=== PATIENT | male | born 1940 | race Hispanic/Latino ===

== ENCOUNTER 2016-11-23 18:17 | Observation (INO) | payer MEDICARE ==
--- NOTE | 2016-11-23 18:26 | ED PDOC ---
Arrival/HPI <Mateusz Jeffers - Last Filed: 11/23/16 20:56> - General Historian: Patient <Walter Weber - Last Filed: 11/23/16 22:08> - General Time Seen by Provider: 11/23/16 18:24 - History of Present Illness Narrative History of Present Illness (Text): 11/23/16 18:25 76 y/o male, pmh including bph/htn/hyperlipidemia, FS 95, nkda, biba, last tetanus doesn't remember, biba for fall while etoh intoxication in the public. Pt. stated that he was drinking 2 shots of liquor, walking on the street, fall on the facial and sustained the abrasion, no neck or back pain, no chest or abdominal pain, no night sweat, no dizziness, no change in vision, no numbness or tingling, no other medical or psychological complaints. (Walter Weber) Past Medical History - Provider Review Nursing Documentation Reviewed: Yes - Cardiac Hx Pacemaker: No - Neurological Hx Paralysis: No - Hematological/Oncological Hx Blood Transfusions: No - Musculoskeletal/Rheumatological Hx Musculoskeletal Disorders: Yes - Gastrointestinal Hx Gastrointestinal Disorders: Yes (Spleen/Gallbladder removed-accident 15yrs ago) - Genitourinary/Gynecological Hx Genitourinary Disorders: Yes (Prostate problems) Hx Reproductive Disorders: No - Psychiatric Hx Emotional Abuse: No Hx Physical Abuse: No Hx Substance Use: No - Surgical History Hx Open Heart Surgery: Yes - Anesthesia Hx Anesthesia Reactions: No Hx Malignant Hyperthermia: No - Suicidal Assessment Feels Threatened In Home Enviroment: No <Waltre Weber - Last Filed: 11/23/16 22:08> Family/Social History - Physician Review Nursing Documentation Reviewed: Yes Family/Social History: Unknown Family HX Smoking Status: Light Smoker < 10 Cigarettes Daily Hx Alcohol Use: Yes (1/2-1PT VODKA DAILY STOPPED 01/27/15) Hx Substance Use: No Hx Substance Use Treatment: No <Walter Weber - Last Filed: 11/23/16 22:08> Allergies/Home Meds <Mateusz Jeffers - Last Filed: 11/23/16 20:56> <Walter Weber - Last Filed: 11/23/16 22:08> Allergies/Adverse Reactions: Allergies shellfish derived Allergy (Verified 11/23/16 18:29) ANAPHYLAXIS NUTS Allergy (Severe, Uncoded 02/03/15 13:49) SWELLING TONGUE SWELLS Home Medications: Home Meds Medication Instructions Recorded Confirmed Atorvastatin Calcium [Lipitor] 10 mg PO QPM 02/12/12 04/12/15 Escitalopram Oxalate 20 mg PO QPM 02/12/12 04/12/15 Ibuprofen 800 mg PO PRN PRN 02/12/12 04/12/15 Aspirin [Aspir 81] 325 mg PO DAILY 05/29/12 03/03/15 Cyclobenzaprine [Flexeril] 5 mg PO Q8 PRN 02/03/15 04/12/15 Lisinopril/Hydrochlorothiazide 1 tab PO QAM 02/03/15 04/12/15 [Lisinopril-Hydrochlorothiazide 12.5 mg-10 mg] Silodosin [Rapaflo] 8 mg PO QAM 02/03/15 04/12/15 Amoxicillin [Amoxicillin] 500 mg PO BID 04/12/15 04/12/15 Review of Systems - Review of Systems Systems not reviewed;Unavailable: Intoxicated Constitutional: absent: Fatigue, Fevers Eyes: absent: Vision Changes ENT: absent: Hearing Changes, Rhinorrhea Cardiovascular: absent: Chest Pain Gastrointestinal: absent: Abdominal Pain, Diarrhea, Nausea, Vomiting Musculoskeletal: absent: Arthralgias, Back Pain, Neck Pain, Joint Swelling, Myalgias Skin: Other (abrasion). absent: Rash, Pruritis Neurological: absent: Headache, Dizziness, Focal Weakness, Gait Changes, Speech Changes, Facial Droop, Disequilibrium, Seizure Endocrine: absent: Diaphoresis Hemo/Lymphatic: absent: Adenopathy Psychiatric: absent: Anxiety <Walter Weber Q - Last Filed: 11/23/16 22:08> Physical Exam Vital Signs Reviewed: Yes - Systems Exam Head: Present: Atraumatic, Normocephalic Pupils: Present: PERRL Extroacular Muscles: Present: EOMI Conjunctiva: Present: Normal Ears: Present: NORMAL TM, Normal Canal. No: Erythema, TM Bulging, Fluid, TM Perf Mouth: Present: Moist Mucous Membranes Nose (External): Present: Atraumatic, Abrasion (noted superficial abrasion [id number] superficial abrasion to the rt. lower nostril region. ). No: Contusion , Laceration, Lesions Nose (Internal): Present: Normal Inspection, No Active Bleeding. No: Rhinorrhea , Purulent Mucous, Septal Deviation, Septal Hematoma, Epistaxis Neck: Present: Normal Range of Motion, Trachea Midline. No: MIDLINE TENDERNESS , Paraspinal Tenderness, Lymphadenopathy Respiratory/Chest: Present: Clear to Auscultation, Good Air Exchange. No: Respiratory Distress, Accessory Muscle Use Cardiovascular: Present: Regular Rate and Rhythm, Normal S1, S2. No: Murmurs Abdomen: Present: Normal Bowel Sounds. No: Tenderness, Distention, Peritoneal Signs, Rebound, Guarding Back: Present: Normal Inspection. No: CVA Tenderness, Midline Tenderness, Paraspinal Tenderness Upper Extremity: Present: Normal Inspection. No: Cyanosis, Edema Lower Extremity: Present: Normal Inspection. No: Edema Neurological: Present: GCS=15, Speech Normal, Motor Func Grossly Intact, Gait Normal, Memory Normal Skin: Present: Warm, Dry, Normal Color. No: Rashes Psychiatric: Present: Alert, Oriented x 3, Normal Insight, Normal Concentration <Walter Weber - Last Filed: 11/23/16 22:08> Vital Signs Temp Pulse Resp BP Pulse Ox 11/23/16 19:03 97.9 F 77 20 129/73 97 Medical Decision Making <Mateusz Jeffers - Last Filed: 11/23/16 20:56> - RAD Interpretation Fleet Manager/Dispatch: Radiologist <Walter Weber - Last Filed: 11/23/16 22:08> ED Course and Treatment: 11/23/16 18:53 -CT head/facial -tetanus -wound irrigate, clean, bacitracin and gauze dressing -observe and reassess 11/23/16 21:13 -CT head and facial show no acute traumatic findings, discussed the results with the patient, advised outpatient neurologist and pmd follow up for further evaluation. -Pt. just gave us the phone number for the daughter which she is from [place], [place]. [employer] Dangelo calling the daughter. 11/23/16 21:24 -We were able to get in touch with the daughter, she will come to [place] the father. 11/23/16 22:05 -Daughter's parents in laws are here and will take the patient home. -Discharge home with education on follow up with your own pmd within 2 days, avoid drinking alcohol in the public as this is dangerous behavior, use bacitracin or neosporin twice daily after cleaning with soap and water, follow up with your own pmd and neurologist within 2 days, return to the ER for any new or worsening signs or symptoms. 11/23/16 22:08 -Pt. is walking around in the ER with normal gait and posture. (Walter Weber Vu) - RAD Interpretation Radiology Orders: 11/23/16 18:37 HEAD W/O CONTRAST [CT] Stat MAXILLOFACIAL W/O CONTRAST [CT] Stat CT Head: FINDINGS: Brain: Moderate atrophy. No intracranial hemorrhage. No mass. Several scattered foci of decreased attenuation within periventricular/subcortical white matter. No edema. Ventricles: No hydrocephalus. Bones/joints: No calvarial fracture. Soft tissues: Unremarkable. Vasculature: Atherosclerotic disease of intracranial arteries. Mastoid air cells: No mastoid effusion. IMPRESSION: 1. No intracranial hemorrhage. 2. Nonspecific white matter changes. 3. See facial bone CT report for additional details. 4. Incidental/non-acute findings are described above. Dictated and Authenticated by: Ryan Diaz MD 11/23/2016 9:02 PM Eastern Time ([place] & [place]) CT Maxillofacial: FINDINGS: Bones/joints: Degenerative changes of cervical spine. Degenerative changes of RIGHT temporomandibular joint. No acute fracture. Soft tissues: Unremarkable. Orbits: Unremarkable as visualized. Sinuses: Scattered mild mucosal thickening. No air-fluid levels. Dental: Dental caries. IMPRESSION: 1. No fracture. 2. Incidental/non-acute findings are described above. Thank you for allowing us to participate in the care of your patient. Dictated and Authenticated by: Ryan Diaz MD 11/23/2016 9:07 PM Eastern Time ([place] & [place]) (Walter Weber) - Medication Orders Current Medication Orders: Discontinued Medications Tetanus/Reduced Diphtheria/Acell Pertussis (Boostrix Vaccine Inj) 0.5 ml IM .ONCE ONE Stop: 11/23/16 18:38 Last Admin: 11/23/16 19:36 Dose: 0.5 ML MAR Immunization Data Document 11/23/16 19:36 OCS (Rec: 11/23/16 19:37 OCS [id number]) Immunization Data Vaccine Lot Number [id number] Vaccine Expiration Date 11/29/18 Site Given Right Deltoid Route Intramuscular Immunization Units ml ED OBSERVATION <Mateusz Jeffers - Last Filed: 11/23/16 20:56> Discharge: Yes Date of observation admission: 11/23/16 Time of observation admission: 18:56 <Walter Weber - Last Filed: 11/23/16 22:08> - Observation admission statement Patient is being placed in observation because:: alcohol intoxication (Walter Weber) - Goals of Observation Goals of observation are:: sober (Walter Weber) - Progress Note Progress Note: 11/23/16 22:06 -Discharge home with education on follow up with your own pmd within 2 days, avoid drinking alcohol in the public as this is dangerous behavior, use bacitracin or neosporin twice daily after cleaning with soap and water, follow up with your own pmd and neurologist within 2 days, return to the ER for any new or worsening signs or symptoms. (Walter Weber) - PA / CERAMIC RESTORER / Resident Statement LULA has reviewed & agrees with the documentation as recorded. <Mateusz Jeffers - Last Filed: 11/23/16 20:56> - PA / CERAMIC RESTORER / Resident Statement LULA has reviewed & agrees with the documentation as recorded. <Walter Weber - Last Filed: 11/23/16 22:08> Disposition/Present on Arrival <Mateusz Jeffers - Last Filed: 11/23/16 20:56> - Present on Arrival Any Indicators Present on Arrival: No History of DVT/PE: No History of Uncontrolled Diabetes: No Urinary Catheter: No History of Decub. Ulcer: No History Surgical Site Infection Following: None - Disposition Have Diagnosis and Disposition been Completed?: Yes Disposition Time: 21:25 Patient Plan: Discharge <Walter Weber - Last Filed: 11/23/16 22:08> - Disposition Diagnosis: Abrasion, Alcohol intoxication, Fall Disposition: HOME/ ROUTINE Patient Problems: Current Active Problems Problem Status Diagnosed Abrasion Acute Alcohol intoxication Acute Fall Acute Condition: GOOD
[2016-11-23 18:28] VITALS: BMI 25.1
[2016-11-23] MEDS ORDERED: TDAP Vaccine 0.5 mL Syr IM ONE (18:37)
[2016-11-23 19:04] VITALS: BP 129/73; PULSE 77; RESP 20; TEMP 97.9; O2SAT 97
--- NOTE | 2016-11-23 21:02 | CT ---
EXAM: CT Head Without Intravenous Contrast. CLINICAL HISTORY: 76 years old, male; Injury or trauma; Fall; Initial encounter; Abrasion; Head, generalized; Additional info: Fall, ETOH, TECHNIQUE: Axial computed tomography images of the head/brain without intravenous contrast. This CT exam was performed using one or more of the following dose reduction techniques: automated exposure control, adjustment of the mA and/or kV according to patient size, and/or use of iterative reconstruction technique. COMPARISON: No relevant prior studies available. FINDINGS: Brain: Moderate atrophy. No intracranial hemorrhage. No mass. Several scattered foci of decreased attenuation within periventricular/subcortical white matter. No edema. Ventricles: No hydrocephalus. Bones/joints: No calvarial fracture. Soft tissues: Unremarkable. Vasculature: Atherosclerotic disease of intracranial arteries. Mastoid air cells: No mastoid effusion. IMPRESSION: 1. No intracranial hemorrhage. 2. Nonspecific white matter changes. 3. See facial bone CT report for additional details. 4. Incidental/non-acute findings are described above.
--- NOTE | 2016-11-23 21:07 | CT ---
EXAM: CT Maxillofacial Without Intravenous Contrast. CLINICAL HISTORY: 76 years old, male; Injury or trauma; Fall; Initial encounter; Abrasion; Forehead; Additional info: Fall, ETOH TECHNIQUE: Axial computed tomography images of the face without intravenous contrast. This CT exam was performed using one or more of the following dose reduction techniques: automated exposure control, adjustment of the mA and/or kV according to patient size, and/or use of iterative reconstruction technique. Coronal and sagittal reformatted images were created and reviewed. COMPARISON: No relevant prior studies available. FINDINGS: Bones/joints: Degenerative changes of cervical spine. Degenerative changes of RIGHT temporomandibular joint. No acute fracture. Soft tissues: Unremarkable. Orbits: Unremarkable as visualized. Sinuses: Scattered mild mucosal thickening. No air-fluid levels. Dental: Dental caries. IMPRESSION: 1. No fracture. 2. Incidental/non-acute findings are described above.
== END 2016-11-23 22:06 | disposition home or self-care (01) ==
LOC: ED 18:17 → EROBSV 18:55
PROVIDERS: ADMIT Emergency Medicine; ATTEND Emergency Medicine
DX: F10.129 Alcohol abuse with intoxication, unspecified (principal); S00.81XA Abrasion of other part of head, initial encounter; W19.XXXA Unspecified fall, initial encounter; Y93.01 Activity, walking, marching and hiking; Y92.410 Unspecified street and highway as the place of occurrence of the external cause; Z23 Encounter for immunization
CPT/HCPCS: 70450; 70486; 82948; 90471; 90715; 99284; G0378

== ENCOUNTER 2017-11-27 14:53 | Inpatient (IN) | payer MEDICARE ==
--- NOTE | 2017-11-27 15:10 | ED PDOC ---
Arrival/HPI - General Chief Complaint: Chest Pain Time Seen by Provider: 11/27/17 15:06 Historian: Patient - History of Present Illness Narrative History of Present Illness (Text): 11/27/17 15:10 pt p/w + ~ 1 day onset of mid/epigastric/substernal chest pain, at times radiating to left chest wall; pt states pain is tolerable/moderately painful; pt states + sob, no fever/chills/sweats, no palpitations, no abd pain, no n/v, no numbness/tingling; pt states no LOC; pt arrived to ED for further eval; pt's without other complaints per pt's daughter, pt states ~ 1 week onset of chest pain PCP: Yen CARDS: Rajan + 2 stents prior to triple vessel bypass + smoker + lives alone last cardiac evaluation as 2013 + mild dementia (noted by daughter) Time/Duration: 24 hours Symptom Onset: Sudden Symptom Course: Intermittent Quality: Tightness Activities at Onset: Rest Context: Home Past Medical History - Provider Review Nursing Documentation Reviewed: Yes - Travel History Have you recently traveled outside [place] w/in the past 3 mons?: No - Past History Past History: No Previous - Infectious Disease Hx of Infectious Diseases: None - Cardiac Hx NM: Yes Hx Hypertension: Yes - Neurological Hx Paralysis: No - HEENT Hx HEENT Disorder: No - Renal Hx Renal Disorder: No - Endocrine/Metabolic Hx Endocrine Disorders: No - Hematological/Oncological Hx Blood Disorders: No - Musculoskeletal/Rheumatological Hx Musculoskeletal Disorders: Yes - Gastrointestinal Hx Gastrointestinal Disorders: Yes (Spleen/Gallbladder removed-accident 15yrs ago) - Genitourinary/Gynecological Hx Genitourinary Disorders: Yes (Prostate problems) Hx Prostate Problems: Yes - Psychiatric Hx Psychophysiologic Disorder: No Hx Substance Use: No - Surgical History Hx Coronary Artery Bypass Graft: Yes Hx Open Heart Surgery: Yes - Anesthesia Hx Anesthesia Reactions: No Hx Malignant Hyperthermia: No - Suicidal Assessment Feels Threatened In Home Enviroment: No Family/Social History - Physician Review Nursing Documentation Reviewed: Yes Family/Social History: No Known Family HX Smoking Status: Light Smoker < 10 Cigarettes Daily Hx Alcohol Use: Yes (1/2-1PT VODKA DAILY STOPPED 01/27/15) Hx Substance Use: No Hx Substance Use Treatment: No Allergies/Home Meds Allergies/Adverse Reactions: Allergies shellfish derived Allergy (Verified 11/27/17 15:06) ANAPHYLAXIS NUTS Allergy (Severe, Uncoded 11/27/17 15:06) SWELLING TONGUE SWELLS Home Medications: Home Meds Medication Instructions Recorded Confirmed Aspirin [Adult Low Dose Aspirin EC] 81 mg PO DAILY 11/27/17 11/27/17 Bupropion HCl [Bupropion HCl Xl] 150 mg PO DAILY 11/27/17 11/27/17 Escitalopram [Lexapro] 20 mg PO DAILY 11/27/17 11/27/17 Lisinopril/Hydrochlorothiazide 1 tab PO DAILY 11/27/17 11/27/17 [Lisinopril-Hctz 10-12.5 mg Tab] Tamsulosin [Flomax] 0.8 mg PO DAILY 11/27/17 11/27/17 Review of Systems - Review of Systems Constitutional: Normal Eyes: Normal ENT: Normal Respiratory: SOB Cardiovascular: Chest Pain Gastrointestinal: Normal Genitourinary Male: Normal Musculoskeletal: Normal Skin: Normal Neurological: Normal Endocrine: Normal Hemo/Lymphatic: Normal Psychiatric: Normal Physical Exam Vital Signs Reviewed: Yes Vital Signs Temp Pulse Resp BP Pulse Ox 11/27/17 15:04 97.4 F L 64 18 128/61 93 L Temperature: Afebrile Blood Pressure: Normal Pulse: Regular Respiratory Rate: Normal Appearance: Positive for: Well-Appearing, Non-Toxic, Uncomfortable, Other ( resting in bed, alert/awake, GCS = 15, oriented x 3, NAD, mildly uncomfortable) Pain Distress: None Mental Status: Positive for: Alert and Oriented X 3 - Systems Exam Head: Present: Atraumatic, Normocephalic Pupils: Present: PERRL, Other (no nystagmus, no photophobia, visual field intact b/l) Extroacular Muscles: Present: EOMI Conjunctiva: Present: Normal Ears: Present: Normal Mouth: Present: Moist Mucous Membranes, Other (fair dentitions, no drooling/ stridor/exudate; no dysphonia) Pharnyx: Present: Normal Nose (External): Present: Atraumatic Nose (Internal): Present: Normal Inspection Neck: Present: Normal Range of Motion, Trachea Midline, Other (no step off, no meningeal signs, no nuchal rigidity). No: MIDLINE TENDERNESS, JVD Respiratory/Chest: Present: Clear to Auscultation, Good Air Exchange, Other ( basiliar coarse breath sounds noted, no tachypenia, no w/r/r, no accessory muscle use noted) Cardiovascular: Present: Regular Rate and Rhythm, Normal S1, S2. No: Murmurs, Tachycardic Abdomen: Present: Normal Bowel Sounds, Other (well nourished male, no focal tenderness, no navarrete's sign, no mcburney's point tenderness, no masses/rebound/ guarding/rigidity) Back: Present: Normal Inspection. No: CVA Tenderness, Midline Tenderness Upper Extremity: Present: Normal Inspection, Normal ROM, NORMAL PULSES, Neurovascularly Intact, Capillary Refill < 2s Lower Extremity: Present: Normal Inspection, NORMAL PULSES, Normal ROM, Neurovascularly Intact, Capillary Refill < 2 s Neurological: Present: GCS=15, CN II-XII Intact, Speech Normal Skin: Present: Warm, Normal Color, Other (cap refill<1s, no ulcerations, no petechiae, no rashes/pallor). No: Rashes Psychiatric: Present: Alert Medical Decision Making ED Course and Treatment: 11/27/17 15:23 Impression: chest pain i have consider all the differential diagnosis regarding pt's chief medical complaints/clinical findings, including but are not limited to: r/o ACS A/P: r/o ACS - labs - iv - xray - acs eval - observe - supportive care I spoke to pt's daughter, Mrs Diaz, who states pt with intermittent chest pain x ~ 1 week; pt with sob/not feeling well; pt lives alone 11/27/17 16:15 pt is currently comfortable pt is not in any distress/pain vital signs WNL pt is made aware of his medical results agrees with admission/observation I spoke to PCP/medicine disease intervention specialist, Dr Dempsey, made aware of pt's medical results, agrees with admission/observation Re-evaluation Time: 16:22 Reassessment Condition: Improved - Lab Interpretations Lab Results: 11/27/17 15:15 11/27/17 15:15 Lab Results 11/27/17 15:15: Sodium 143, Potassium 4.3, Chloride 108 H, Carbon Dioxide 27, Anion Gap 12, BUN 33 H, Creatinine 1.3, Est GFR ( Amer) > 60, Est GFR ( Non-Af Amer) 54, Random Glucose 99, Calcium 9.6, Magnesium 2.3 H, Total Bilirubin 0.6, AST 31, ALT 31, Alkaline Phosphatase 87, Lactate Dehydrogenase 457, Total Creatine Kinase 152, Troponin I < 0.01, NT-Pro-B Natriuret Pep 231, Total Protein 7.2, Albumin 3.9, Globulin 3.3, Albumin/Globulin Ratio 1.2 11/27/17 15:15: PT 11.7, INR 1.03, APTT 28.5 11/27/17 15:15: WBC 7.3, RBC 4.34, Hgb 13.7 L, Hct 39.5 L, MCV 91.0, MCH 31.6, MCHC 34.7, RDW 14.3, Plt Count 173, MPV 12.3 H, Gran % 51.5, Lymph % (Auto) 35.7 H, [place] % (Auto) 9.2 H, Eos % (Auto) 3.1, Baso % (Auto) 0.5, Gran # 3.77, Lymph # (Auto) 2.6, [place] # (Auto) 0.7 H, Eos # (Auto) 0.2, Baso # (Auto) 0.04 I have reviewed the lab results: Yes Interpretation: All labs normal - RAD Interpretation Narrative RAD Interpretations (Text): 11/27/17 16:22 CXR - rotated, poor insp effort, + sternotomy, mild cardiomeagly Radiology Orders: 11/27/17 15:11 CHEST TWO VIEWS (PA/LAT) [RAD] Stat Nurse Companion: ED Physician - EKG Interpretation EKG Interpretation (Text): 11/27/17 15:21 NSR at 65 BPM, normal axis, no ectopy, inverted T in leads II/III, V4-6, no st changes, ABNL EKG; unchanged compare with old ekg 01/2015 Interpreted by ED Physician: Yes Type: 12 lead EKG Comparison: Similar to previous EKG - Medication Orders Current Medication Orders: Discontinued Medications Acetaminophen (Tylenol 325mg Tab) 650 mg PO STAT STA Stop: 11/27/17 15:13 Last Admin: 11/27/17 15:24 Dose: 650 mg MAR Pain/Vitals Document 11/27/17 15:24 [facility] (Rec: 11/27/17 15:24 [facility] [id number]) Pain Reassessment Is This A Pain ReAssessment? No Sleep Is patient sleeping during reassessment? No Presence of Pain Presence of Pain Yes Pain Scale Used Pain Scale Used Numeric Location Left, Right or Bilateral Left Pain Location Body Site Chest Intensity 4 Scale Used Numeric Aspirin (Aspirin) 325 mg PO STAT STA Stop: 11/27/17 15:12 Last Admin: 11/27/17 15:24 Dose: 325 mg Nitroglycerin (Nitro-Bid 2% Oint) 1 ea TOP STAT STA Stop: 11/27/17 15:13 Last Admin: 11/27/17 15:24 Dose: 1 ea Disposition/Present on Arrival - Present on Arrival Any Indicators Present on Arrival: No History of DVT/PE: No History of Uncontrolled Diabetes: No Urinary Catheter: No History of Decub. Ulcer: No History Surgical Site Infection Following: None - Disposition Have Diagnosis and Disposition been Completed?: Yes Diagnosis: Chest pain with moderate risk of acute coronary syndrome Disposition: HOSPITALIZED Disposition Time: 15:30 Patient Plan: Admission, Observation Patient Problems: Current Active Problems Problem Status Onset Chest pain with moderate risk of acute coronary syndrome Acute Condition: STABLE Discharge Instructions (ExitCare): Chest Pain (ED) Referrals: Clive Fox MD [Primary Care Provider] - Follow up with primary Forms: [facility] (Russian)
[2017-11-27] MEDS ORDERED: Nitroglycerin 2% Ointment Foilpak UD TOP STA (15:12)
[2017-11-27 15:29] LABS: BASO # 0.04 K/mm3 (0.0-2.0); BASO % 0.5 % (0.0-3.0); EOS # 0.2 (0.0-0.7); EOS % 3.1 % (1.5-5.0); GRAN # 3.77 (1.4-6.5); GRAN % 51.5 % (50.0-68.0); HEMOGLOBIN 13.7 g/dL (14.0-18.0); LYMPH # 2.6 (1.2-3.4); LYMPH % 35.7 % (22.0-35.0); MEAN CORPUSCULAR HEMOGLOBIN 31.6 pg (25.0-35.0); MEAN CORPUSCULAR HGB CONC 34.7 g/dl (31.0-37.0); MEAN PLATELET VOLUME 12.3 fl (7.0-11.0); MONO # 0.7 (0.1-0.6); MONO % 9.2 % (1.0-6.0); RBC 4.34 10^6/uL (3.5-6.1); RED CELL DISTRIBUTION WIDTH 14.3 % (11.5-14.5); WHITE BLOOD COUNT 7.3 10^3/ul (4.5-11.0)
[2017-11-27 15:39] LABS: ALB/GLOB RATIO 1.2 (1.1-1.8); ALBUMIN 3.9 g/dL (3.0-4.8); ALT/SGPT 31 U/L (7-56); AST/SGOT 31 U/L (17-59); BLOOD UREA NITROGEN 33 mg/dL (7-21); CALCIUM 9.6 mg/dL (8.4-10.5); GFR AFRICAN-AMERICAN > 60; GFR NON-AFRICAN AMERICAN 54
[2017-11-27 15:41] LABS: INR 1.03 (0.93-1.08); PARTIAL THROMBOPLASTIN TIME 28.5 Seconds (25.1-36.5); PROTHROMBIN TIME 11.7 SECONDS (9.4-12.5)
[2017-11-27 15:51] LABS: B-TYPE NATRIURETIC PEPTIDE 231 pg/mL (0-450); TROPONIN I < 0.01 ng/mL
--- NOTE | 2017-11-27 16:51 | RAD ---
HISTORY: chest pain COMPARISON: 02/03/2015 TECHNIQUE: Chest PA and lateral FINDINGS: LUNGS: Hyperinflation, manifestations of COPD. No active pulmonary disease. PLEURA: No significant pleural effusion identified. No pneumothorax apparent. CARDIOVASCULAR: No radiographic findings to suggest acute or significant cardiovascular disease. Incidental Finding(s): Postoperative changes related to sternotomy. OSSEOUS STRUCTURES: Severe degenerative changes both shoulders right greater than left. VISUALIZED UPPER ABDOMEN: Normal. OTHER FINDINGS: None. IMPRESSION: No active disease. No significant interval change compared to the prior examination(s).
[2017-11-27 16:58] LABS: HDL CHOLESTEROL 30 mg/dL (29-60)
[2017-11-27 17:08] LABS: LDL CHOLESTEROL 128 mg/dL (0-129)
--- NOTE | 2017-11-27 17:13 | CARD ---
APPROVED REPORT EKG Measurement Heart [id number] <Conclusion> Normal sinus rhythm Incomplete right bundle branch block T wave abnormality, consider lateral ischemia
[2017-11-27 17:52] LABS: URINE BILIRUBIN NEGATIVE (NEGATIVE); URINE BLOOD NEGATIVE (NEGATIVE); URINE GLUCOSE (UA) NEGATIVE (NEGATIVE); URINE LEUKOCYTE ESTERASE NEGATIVE Leu/uL (NEGATIVE); URINE PROTEIN NEGATIVE mg/dL (<30 mg/dL); URINE UROBILINOGEN 0.2 E.U./dL (<1 E.U./dL)
[2017-11-27] MEDS ORDERED: Albuterol-Ipratrop 3 mg / 0.5 (3 ml) UD IH PRN (17:57)
[2017-11-27 18:02] LABS: URINE APPEARANCE CLEAR (CLEAR); URINE COLOR YELLOW (YELLOW)
[2017-11-27 18:17] LABS: BARBITURATES, UR NEGATIVE (NEGATIVE); BENZODIAZEPINES, UR NEGATIVE (NEGATIVE); OPIATES, UR NEGATIVE (NEGATIVE); PHENCYCLIDINE, UR NEGATIVE (NEGATIVE)
--- NOTE | 2017-11-27 18:29 | CP.PCM.HP ---
<BurrowsGavin - Last Filed: 11/27/17 17:59> History of Present Illness - History of Present Illness History of Present Illness: Mr. Ceron is a 77 year old male with a past medical history of CAD s/p CABG and three MARIAH(~2011), HTN, BPH, COPD, depression, dementia, alcohol use disorder and tobacco use disorder who presents with one week of intermittent non -radiating sharp/stabbing substernal chest pain. Patient has a history of dementia and speaks primarily Pakistani so a souvenir and novelty maker was used for HPI interview with supplementation via phone from patients daughter. Patient has been having episodes of intermittent non-radiating sharp/stabbing substernal chest pain while at rest lasting less than one minute. These episodes are self limited and require no intervention for resolution. He has been having these episodes over the course of the past week with no correlation to exertion, positional changes or PO intake. He denies ever having pain like this in the past. Patient denies recent travel, sick contacts, fevers, chills, headache, changes in his vision, palpitations, syncope, vertigo, SOB, cough, sputum production, hemoptysis, abdominal pain, dyspepsia, N/V/D/C, changes in his urine output/color, skin changes, easy bruising/bleeding, or any numbness/tingling/weakness of any extremity. In the ED, patient was found to have one negative troponin and an EKG showing T- wave inversions which were noted to be unchanged from prior EKG's. He was given Tylenol 650mg, ASA 325mg and a topical Nitroglycerin patch. PMH: CAD s/p CABG and three MARIAH(~2011), HTN, BPH, COPD, depression, dementia, alcohol use disorder and tobacco use disorder PSH: CABG (~2011), Splenectomy, and Cholecystectomy Family History: Denies Social History: Current smoker with 30+ year pack smoking history and denies alcohol or illicit drug use; Speaks primarily Pakistani; Lives alone in [place] and completes all of his ADL's without assistance Allergies: Shellfish and Nuts Home Medications: As per NOV PMD: Dr. Fox Activities Concierge: Dr. Rajan Present on Admission - Present on Admission Any Indicators Present on Admission: No Review of Systems - Review of Systems Review of Systems: As per HPI, otherwise negative Past Patient History - Infectious Disease Hx of Infectious Diseases: None - Tetanus Immunizations Tetanus Immunization: Unknown - Past Social History Smoking Status: Light Smoker < 10 Cigarettes Daily - CARDIAC Hx Heart Attack: Yes Hx Hypertension: Yes - NEUROLOGICAL Hx Paralysis: No - HEENT Hx HEENT Problems: No - RENAL Hx Chronic Kidney Disease: No - ENDOCRINE/METABOLIC Hx Endocrine Disorders: No - HEMATOLOGICAL/ONCOLOGICAL Hx Blood Disorders: No - MUSCULOSKELETAL/RHEUMATOLOGICAL Hx Musculoskeletal Disorders: Yes - GASTROINTESTINAL Hx Gastrointestinal Disorders: Yes (Spleen/Gallbladder removed-accident 15yrs ago) - GENITOURINARY/GYNECOLOGICAL Hx Genitourinary Disorders: Yes (Prostate problems) Hx Prostate Problems: Yes - PSYCHIATRIC Hx Psychophysiologic Disorder: No Hx Substance Use: No - SURGICAL HISTORY Hx Coronary Artery Bypass Graft: Yes Hx Open Heart Surgery: Yes - ANESTHESIA Hx Anesthesia Reactions: No Hx Malignant Hyperthermia: No Meds Allergies/Adverse Reactions: Allergies Allergy/AdvReac Type Severity Reaction Status Date / Time shellfish derived Allergy ANAPHYLAXIS Verified 11/27/17 15:06 NUTS Allergy Severe SWELLING Uncoded 11/27/17 15:06 Physical Exam - Constitutional Appears: Non-toxic, No Acute Distress - Head Exam Head Exam: ATRAUMATIC, NORMOCEPHALIC - Eye Exam Eye Exam: EOMI, Normal appearance Pupil Exam: NORMAL ACCOMODATION, PERRL - ENT Exam ENT Exam: Mucous Membranes Moist, Normal Exam - Neck Exam Neck exam: Positive for: Full Rom, Normal Inspection. Negative for: Lymphadenopathy, Tenderness - Respiratory Exam Respiratory Exam: Clear to Auscultation Bilateral, NORMAL BREATHING PATTERN. absent: Accessory Muscle Use, Chest Wall Tenderness, Decreased Breath Sounds, Prolonged Expiratory Phase, Rales, Rhonchi, Wheezes, Respiratory Distress, Stridor - Cardiovascular Exam Cardiovascular Exam: REGULAR RHYTHM, RRR, +S1, +S2. absent: Bradycardia, Tachycardia, Clicks, Diastolic murmur, Gallop, Irregular Rhythm, JVD, Rubs, +S4 , Systolic Murmur - GI/Abdominal Exam GI & Abdominal Exam: Normal Bowel Sounds, Soft. absent: Distended, Firm, Guarding, Rebound, Tenderness - Extremities Exam Extremities exam: Positive for: full ROM, normal capillary refill, normal inspection, pedal pulses present. Negative for: calf tenderness, joint swelling , pedal edema, tenderness - Back Exam Back exam: NORMAL INSPECTION - Neurological Exam Neurological exam: Alert, CN II-XII Intact, Oriented x3 - Psychiatric Exam Psychiatric exam: Normal Affect, Normal Mood - Skin Skin Exam: Dry, Intact, Normal Color, Warm Results - Vital Signs Recent Vital Signs: Last Vital Signs Temp 97.4 F L 11/27/17 15:04 Pulse 64 11/27/17 15:04 Resp 18 11/27/17 15:04 BP 128/61 11/27/17 15:04 Pulse Ox 93 L 11/27/17 15:04 - Labs Result Diagrams: 11/27/17 15:15 11/27/17 15:15 - EKG Data EKG shows normal: Sinus rhythm Rate: Normal - EKG Data When Compared to Previous EKG: No Significant Change Assessment & Plan - Assessment and Plan (Free Text) Assessment: 77 year old male with a past medical history of CAD s/p CABG and three MARIAH(~2011 ), HTN, BPH, COPD, depression, dementia, alcohol use disorder and tobacco use disorder who presents with one week of intermittent non-radiating sharp/ stabbing substernal chest pain. In the ED, patient was found to have one negative troponin and an EKG showing T-wave inversions which were noted to be unchanged from prior EKG's. He was given Tylenol 650mg, ASA 325mg and a topical Nitroglycerin patch. Cardiology was consulted and patient was admitted to telemetry. Plan: 1. Chest Pain -EMPERATRIZ Score: 5 -Chest X-Ray showed hyperinflation consistent with COPD but with no active pulmonary disease -EKG showed NSR at 64 beats/min, incomplete RBBB and T-wave inversions in multiple leads which is noted to be unchanged from prior EKG's -Initial troponin negative with two serial troponins pending -Pro-BNP within normal limits -Echo, Lipid Panel and A1c pending -Given Tylenol 650mg, ASA 325mg and a topical Nitroglycerin patch in ED -Telemetry monitoring -Cardiology consulted, all recommendations appreciated 2. History of HTN -Lisinopril 10mg PO daily 3. History of CAD s/p CABG and three MARIAH -See EKG findings above -Continue home ASA -Started Toprol XL 12.5mg PO daily 4. History of Alcohol Abuse/Withdrawal -Alcohol serum pending -Ativan 1mg IVP Q6H PRN for symptoms of alcohol withdrawal -PO Folate, Thiamine and MV supplementation -CIWA Assessments Q4H -Fall, Aspiration and Seizure precautions -Cessation recommendations provided 5. History of BPH -Continue home Flomax 6. History of COPD -See chest x-ray findings above -Duonebs Q2H PRN 7. History of Depression/Anxiety -Continue home Wellbutrin and Lexapro 8. History of Tobacco Use Disorder -Nicoderm CQ TD QD -Cessation recommendations provided GI Prophylaxis: Pepcid DVT Prophylaxis: Heparin Patient seen and case discussed with attending, Dr. Dempsey. - Date & Time Date: 11/27/17 Time: 18:31 <Sandra Dempsey - Last Filed: 11/28/17 13:52> Results - Vital Signs Recent Vital Signs: Last Vital Signs Temp 98 F 11/28/17 12:00 Pulse 77 11/28/17 13:30 Resp 18 11/28/17 13:30 BP 138/73 11/28/17 13:30 Pulse Ox 93 L 11/28/17 06:00 - Labs Result Diagrams: 11/28/17 04:10 11/28/17 04:10 Labs: Laboratory Results - last 24 hr 11/27/17 11/27/17 11/27/17 17:38 17:38 18:15 WBC RBC Hgb Hct MCV MCH MCHC RDW Plt Count MPV Gran % Lymph % (Auto) [place] % (Auto) Eos % (Auto) Baso % (Auto) Gran # Lymph # (Auto) [place] # (Auto) Eos # (Auto) Baso # (Auto) APTT Sodium Potassium Chloride Carbon Dioxide Anion Gap BUN Creatinine Est GFR ( Amer) Est GFR (Non-Af Amer) Random Glucose Calcium Total Bilirubin AST ALT Alkaline Phosphatase Troponin I Total Protein Albumin Globulin Albumin/Globulin Ratio Urine Color Yellow Urine Appearance Clear Urine pH 6.0 Ur Specific [place] 1.025 Urine Protein Negative Urine Glucose (UA) Negative Urine Ketones Negative Urine Blood Negative Urine Nitrate Negative Urine Bilirubin Negative Urine Urobilinogen 0.2 Ur Leukocyte Esterase Negative Urine Opiates Screen Negative Urine Methadone Screen Negative Ur Barbiturates Screen Negative Ur Phencyclidine Scrn Negative Ur Amphetamines Screen Negative U Benzodiazepines Scrn Negative U Oth Cocaine Metabols Negative U Cannabinoids Screen Negative Alcohol, Quantitative < 10 11/28/17 11/28/17 11/28/17 04:10 04:10 04:10 WBC 7.1 RBC 4.15 Hgb 12.7 L Hct 37.6 L MCV 90.6 MCH 30.6 MCHC 33.8 RDW 14.4 Plt Count 159 MPV 12.4 H Gran % 45.1 L Lymph % (Auto) 40.8 H [place] % (Auto) 8.6 H Eos % (Auto) 4.8 Baso % (Auto) 0.7 Gran # 3.18 Lymph # (Auto) 2.9 [place] # (Auto) 0.6 Eos # (Auto) 0.3 Baso # (Auto) 0.05 APTT 30.6 Sodium 142 Potassium 4.0 Chloride 107 Carbon Dioxide 26 Anion Gap 13 BUN 28 H Creatinine 1.1 Est GFR ( Amer) > 60 Est GFR (Non-Af Amer) > 60 Random Glucose 99 Calcium 9.3 Total Bilirubin 0.6 AST 28 ALT 41 Alkaline Phosphatase 69 Troponin I < 0.01 Total Protein 6.6 Albumin 3.6 Globulin 3.0 Albumin/Globulin Ratio 1.2 Urine Color Urine Appearance Urine pH Ur Specific [place] Urine Protein Urine Glucose (UA) Urine Ketones Urine Blood Urine Nitrate Urine Bilirubin Urine Urobilinogen Ur Leukocyte Esterase Urine Opiates Screen Urine Methadone Screen Ur Barbiturates Screen Ur Phencyclidine Scrn Ur Amphetamines Screen U Benzodiazepines Scrn U Oth Cocaine Metabols U Cannabinoids Screen Alcohol, Quantitative 11/28/17 11:15 WBC RBC Hgb Hct MCV MCH MCHC RDW Plt Count MPV Gran % Lymph % (Auto) [place] % (Auto) Eos % (Auto) Baso % (Auto) Gran # Lymph # (Auto) [place] # (Auto) Eos # (Auto) Baso # (Auto) APTT Sodium Potassium Chloride Carbon Dioxide Anion Gap BUN Creatinine Est GFR ( Amer) Est GFR (Non-Af Amer) Random Glucose Calcium Total Bilirubin AST ALT Alkaline Phosphatase Troponin I < 0.01 Total Protein Albumin Globulin Albumin/Globulin Ratio Urine Color Urine Appearance Urine pH Ur Specific [place] Urine Protein Urine Glucose (UA) Urine Ketones Urine Blood Urine Nitrate Urine Bilirubin Urine Urobilinogen Ur Leukocyte Esterase Urine Opiates Screen Urine Methadone Screen Ur Barbiturates Screen Ur Phencyclidine Scrn Ur Amphetamines Screen U Benzodiazepines Scrn U Oth Cocaine Metabols U Cannabinoids Screen Alcohol, Quantitative Attending/Attestation - Attestation I have personally seen and examined this patient.: Yes I have fully participated in the care of the patient.: Yes I have reviewed all pertinent clinical information: Yes Notes (Text): 11/28/17 13:50 Patient was seen and examined with phlebotomist medical lab assistant. 77 year old male with a past medical history of CAD s/p CABG , HTN, BPH, COPD, depression, dementia and alcohol abuse is admitted with H/O chest pain at home yesterday, lasted 5-10 minutes,Patient is pain free, EKG showed lateral and inferior wall which are old, there is no new EKG changes.We will monitor patient in telemetry, will get serial troponin and will get cardiology evaluation.
[2017-11-28 01:07] VITALS: BMI 28.0
[2017-11-28 04:47] LABS: BASO # 0.05 K/mm3 (0.0-2.0); BASO % 0.7 % (0.0-3.0); EOS # 0.3 (0.0-0.7); EOS % 4.8 % (1.5-5.0); GRAN # 3.18 (1.4-6.5); GRAN % 45.1 % (50.0-68.0); HEMOGLOBIN 12.7 g/dL (14.0-18.0); LYMPH # 2.9 (1.2-3.4); LYMPH % 40.8 % (22.0-35.0); MEAN CELL VOLUME 90.6 fl (80.0-105.0); MEAN CORPUSCULAR HEMOGLOBIN 30.6 pg (25.0-35.0); MEAN CORPUSCULAR HGB CONC 33.8 g/dl (31.0-37.0); MEAN PLATELET VOLUME 12.4 fl (7.0-11.0); MONO # 0.6 (0.1-0.6); MONO % 8.6 % (1.0-6.0); RBC 4.15 10^6/uL (3.5-6.1); RED CELL DISTRIBUTION WIDTH 14.4 % (11.5-14.5); WHITE BLOOD COUNT 7.1 10^3/ul (4.5-11.0)
[2017-11-28 04:48] LABS: TROPONIN I < 0.01 ng/mL
[2017-11-28 05:17] LABS: ALB/GLOB RATIO 1.2 (1.1-1.8); ALBUMIN 3.6 g/dL (3.0-4.8); ALT/SGPT 41 U/L (7-56); AST/SGOT 28 U/L (17-59); BLOOD UREA NITROGEN 28 mg/dL (7-21); CALCIUM 9.3 mg/dL (8.4-10.5); GFR AFRICAN-AMERICAN > 60; GFR NON-AFRICAN AMERICAN > 60
--- NOTE | 2017-11-28 08:31 | CP.PCM.PN ---
<Julián Mayfield - Last Filed: 11/28/17 20:38> Subjective - Date & Time of Evaluation Date of Evaluation: 11/28/17 Time of Evaluation: 07:30 - Subjective Subjective: Julián Mayfield DO PGY1 - IM Progress Note Patient seen and examined at bedside, per nursing staff, no acute events overnight. Patient denies chest pain or shortness of breath, resolved since yesterday. Patient is oriented to person, place, situation, but not time. He denies palpitations, nausea, vomiting, diarrhea, constipation, abdominal pain. Objective - Vital Signs/Intake and Output Vital Signs (last 24 hours): Temp Pulse Resp BP Pulse Ox 97.2 F L 60 18 101/71 93 L 11/28/17 06:00 11/28/17 06:00 11/28/17 06:00 11/28/17 06:00 11/28/17 06:00 Intake and Output: 11/28/17 11/28/17 06:59 18:59 Intake Total 360 Output Total 200 Balance 160 - Medications Medications: Current Medications Albuterol/Ipratropium (Duoneb 3 Mg/0.5 Mg (3 Ml) Ud) 3 ml IH Q2H PRN PRN Reason: Shortness of Breath Aspirin (Ecotrin) 81 mg PO DAILY [facility] Bupropion HCl (Wellbutrin Xl) 150 mg PO DAILY [facility] Escitalopram Oxalate (Lexapro) 20 mg PO DAILY [facility] Famotidine (Pepcid) 20 mg PO HS [facility] Last Admin: 11/27/17 22:07 Dose: 20 mg Folic Acid (Folic Acid) 1 mg PO DAILY [facility] Heparin Sodium (Porcine) (Heparin) 5,000 units SC Q12 CEDRICK PRN Reason: Protocol Last Admin: 11/27/17 22:07 Dose: 5,000 units Lisinopril (Zestril) 10 mg PO DAILY [facility] Lorazepam (Ativan) 1 mg IVP Q6H PRN; Protocol PRN Reason: Symptoms of alcohol withdrawl Metoprolol Succinate (Toprol Xl) 12.5 mg PO BRK [facility] Multivitamins/Minerals (Therapeutic-M Tab) 1 tab PO 0800 [facility] Nicotine (Nicoderm Cq) 1 patch TD DAILY [facility] Tamsulosin HCl (Flomax) 0.8 mg PO DAILY [facility] Thiamine HCl (Vitamin B1 Tab) 100 mg PO DAILY [facility] - Labs Labs: 11/28/17 04:10 11/28/17 04:10 PT 11.7 SECONDS (9.4-12.5) 11/27/17 15:15 INR 1.03 (0.93-1.08) 11/27/17 15:15 APTT 30.6 Seconds (25.1-36.5) 11/28/17 04:10 - Constitutional Appears: Non-toxic, No Acute Distress - Head Exam Head Exam: ATRAUMATIC, NORMOCEPHALIC - Eye Exam Eye Exam: EOMI, Normal appearance, PERRL Pupil Exam: NORMAL ACCOMODATION - ENT Exam ENT Exam: Mucous Membranes Moist, Normal Exam - Neck Exam Neck Exam: Normal Inspection - Respiratory Exam Respiratory Exam: Clear to Ausculation Bilateral, NORMAL BREATHING PATTERN. absent: Rales, Rhonchi, Wheezes - Cardiovascular Exam Cardiovascular Exam: REGULAR RHYTHM, +S1, +S2. absent: Bradycardia, Tachycardia , JVD - GI/Abdominal Exam GI & Abdominal Exam: Soft, Normal Bowel Sounds. absent: Tenderness - Extremities Exam Extremities Exam: Normal Capillary Refill, Normal Inspection. absent: Calf Tenderness, Pedal Edema - Neurological Exam Neurological Exam: Alert, Awake, Oriented x3 - Psychiatric Exam Psychiatric exam: Normal Affect, Normal Mood - Skin Skin Exam: Dry, Intact, Normal Color Assessment and Plan - Assessment and Plan (Free Text) Assessment: 77 year old male with a past medical history of CAD s/p CABG and three MARIAH(~2011 ), HTN, BPH, COPD, depression, dementia, alcohol use disorder and tobacco use disorder who presents with one week of intermittent non-radiating sharp/ stabbing substernal chest pain. Serial troponins negative, no new EKG changes. Patient is of very high risk for ACS, considering history and demographic. Admitted to telemetry, pending cardiac clearance. Plan: 1. Chest Pain -EMPERATRIZ Score: 5 -Serial troponins negative; no longer complaining of chest pain -Echo pending; Lipid Panel and A1c wnl -Continue ASA, BB, ACEi -Telemetry monitoring -Cardiology consulted, all recommendations appreciated 2. History of HTN -BP well controlled -Lisinopril 10mg PO daily 3. History of CAD s/p CABG and three MARIAH -Continue home ASA, BB -Pending cardio recs for possible cath inpatient vs discharge with outpatient follow up 4. History of Alcohol Abuse/Withdrawal -Alcohol serum low; no signs of withdrawal -Ativan 1mg IVP Q6H PRN for symptoms of alcohol withdrawal -PO Folate, Thiamine and MV supplementation -CIWA Assessments Q4H -Fall, Aspiration and Seizure precautions 5. History of BPH -Continue home Flomax 6. History of COPD -See chest x-ray findings above -Duonebs Q2H PRN 7. History of Depression/Anxiety -Continue home Wellbutrin and Lexapro 8. History of Tobacco Use Disorder -Nicoderm CQ TD QD -Cessation recommendations provided GI Prophylaxis: Pepcid DVT Prophylaxis: Heparin Patient seen and case discussed with attending, Dr. Dempsey. <Sandra Dempsey - Last Filed: 11/30/17 13:11> Objective - Vital Signs/Intake and Output Vital Signs (last 24 hours): Temp Pulse Resp BP Pulse Ox 97.6 F 62 20 138/79 95 11/29/17 06:00 11/30/17 12:52 11/29/17 06:00 11/30/17 12:52 11/29/17 06:00 Intake and Output: 11/30/17 11/30/17 06:59 18:59 Intake Total 360 Output Total 100 Balance 260 - Medications Medications: Current Medications Albuterol/Ipratropium (Duoneb 3 Mg/0.5 Mg (3 Ml) Ud) 3 ml IH Q2H PRN PRN Reason: Shortness of Breath Aspirin (Ecotrin) 81 mg PO DAILY [facility] Last Admin: 11/30/17 12:52 Dose: 81 mg Bupropion HCl (Wellbutrin Xl) 150 mg PO DAILY [facility] Last Admin: 11/30/17 12:52 Dose: 150 mg Clopidogrel Bisulfate (Plavix) 75 mg PO DAILY [facility] Last Admin: 11/30/17 12:52 Dose: 75 mg Escitalopram Oxalate (Lexapro) 20 mg PO DAILY [facility] Last Admin: 11/30/17 12:52 Dose: 20 mg Famotidine (Pepcid) 20 mg PO HS [facility] Last Admin: 11/30/17 01:36 Dose: Not Given Folic Acid (Folic Acid) 1 mg PO DAILY [facility] Last Admin: 11/30/17 12:52 Dose: 1 mg Lisinopril (Zestril) 10 mg PO DAILY [facility] Last Admin: 11/30/17 12:52 Dose: 10 mg Lorazepam (Ativan) 1 mg IVP Q6H PRN; Protocol PRN Reason: Symptoms of alcohol withdrawl Last Admin: 11/29/17 20:06 Dose: 1 mg Metoprolol Succinate (Toprol Xl) 12.5 mg PO BRK [facility] Last Admin: 11/30/17 08:55 Dose: 12.5 mg Multivitamins/Minerals (Therapeutic-M Tab) 1 tab PO 0800 [facility] Last Admin: 11/30/17 08:55 Dose: 1 tab Nicotine (Nicoderm Cq) 1 patch TD DAILY [facility] Last Admin: 11/30/17 12:51 Dose: 1 patch Tamsulosin HCl (Flomax) 0.8 mg PO DAILY [facility] Last Admin: 11/30/17 12:52 Dose: 0.8 mg Thiamine HCl (Vitamin B1 Tab) 100 mg PO DAILY [facility] Last Admin: 11/30/17 12:53 Dose: 100 mg - Labs Labs: 11/30/17 06:00 11/30/17 06:00 PT 11.7 SECONDS (9.4-12.5) 11/27/17 15:15 INR 1.03 (0.93-1.08) 11/27/17 15:15 APTT 30.6 Seconds (25.1-36.5) 11/28/17 04:10 Attending/Attestation - Attestation I have personally seen and examined this patient.: Yes I have fully participated in the care of the patient.: Yes I have reviewed all pertinent clinical information, including history, physical exam and plan: Yes Notes (Text): 11/30/17 13:10 Patient was seen and examined with medical language specialist. 77 year old male with a past medical history of CAD s/p CABG , HTN, BPH, COPD, depression, dementia and alcohol abuse is admitted with H/O chest pain at home yesterday, lasted 5-10 minutes,Patient is pain free, EKG showed lateral and inferior wall which are old, there is no new EKG changes. Troponins are normal.Patient has been evaluated by cardiology and is scheduled for cardiac cath today.
[2017-11-28] MEDS ORDERED: Famotidine 20mg/50ml 20 MG/50 ML BAG IVPB ONE (09:31)
[2017-11-28] MEDS ORDERED: DiphenhydrAMINE 50 mg/ml Inj ONE (09:31)
[2017-11-28] MEDS ORDERED: Lidocaine 2% Inj (20ml) ONE (09:32)
[2017-11-28] MEDS ORDERED: Phenylephrine 10 mg/ml Inj ONE (09:34)
[2017-11-28] MEDS ORDERED: Iohexol 350mgl/ml 50 ML ONE (09:34)
[2017-11-28] MEDS ORDERED: Iodixanol 320 MG/ML 200 ML BOTTLE IV ONE (09:34)
[2017-11-28] MEDS ORDERED: Iodixanol 320 MG/ML 100 ML BOTTLE IV ONE (09:34)
[2017-11-28] MEDS ORDERED: Midazolam 2 MG/2 ML VIAL ONE ×2 (09:51→09:57)
--- NOTE | 2017-11-28 10:25 | CARD ---
APPROVED REPORT EKG Measurement Heart [id number] <Conclusion> Normal sinus rhythm Minimal voltage criteria for LVH, may be normal variant Inferior infarct, age undetermined T wave abnormality, consider anterolateral ischemia Abnormal ECG
--- NOTE | 2017-11-28 12:22 | CARDCATH ---
PROCEDURE DATE: 11/28/2017 CARDIAC CATHETERIZATION AND PTCA HISTORY: The patient is a 77-year-old male, who presented with exertional shortness of breath and angina. He is status post coronary bypass surgery. The patient continues to smoke. PROCEDURE: Left heart catheterization with coronary arteriography, left ventriculogram, saphenous vein graft angiogram, followed by PTCA and stent of the saphenous vein graft to the circumflex artery. The right femoral artery was cannulated with a 6-[place]oc[place] sheath. There were no complications. I performed moderate sedation, which included the presence of an independent trained observer that assisted in monitoring the patient's level of consciousness and physiologic status. After administration of Versed and fentanyl, my intra service time was 30 minutes. The findings on catheterization revealed a left ventricle that was hyperdynamic. Overall ejection fraction was greater than 70%. His coronary anatomy revealed an occluded dominant RCA at its ostium. The left main artery was unremarkable. The LAD revealed diffuse atherosclerosis without critical lesions throughout its course. The circumflex artery revealed an occluded obtuse marginal branch. The saphenous vein graft to the RCA was found to be patent and was bypassed to the large posterolateral branch, which revealed retrograde filling of the PDA. There were no critical lesions. The saphenous vein graft to the obtuse marginal branch was a jump graft to OM1 and OM2. In the distal portion of the graft, there was a 70-80% stenosis noted. The patient was started on intravenous Angiomax on the fluoroscopic guide, the guiding catheter was placed in the ostium of the saphenous vein graft. An 0.014 ATW wire was used to cross the lesion into the circumflex artery. A 4.0 x 12 mm drug-eluting stent was placed and deployed at 14 atmospheres of pressure. After balloon deflation and removal, repeat coronary arteriography revealed an excellent result with no residual stenosis and EMPERATRIZ III flow. Angio-Seal was used to close the femoral artery site. The patient tolerated the procedure well. In summary, the procedure was successful PTCA and stent of the saphenous vein graft to the circumflex artery with a drug-eluting stent. Cardiac catheterization reveals critical lesions in the RCA as well as the obtuse marginal branches, which were protected by saphenous vein graft from his bypass surgery. Given these findings, the patient will need to remain on aspirin indefinitely and Plavix for at least a year and undergo a strict cardiac risk reduction program. He will need to stop smoking. I have discussed this with the patient and family who understand. Bogdan Rajan MD
[2017-11-28] MEDS: buPROPion 150 mg/24 Hours XL Tab PO SCH (15:22)
[2017-11-28] MEDS: Metoprolol Succinate 25 mg XL Tab PO SCH (15:22)
[2017-11-28] MEDS: Multivitamin With Minerals Tab PO SCH (15:24)
--- NOTE | 2017-11-28 21:22 | CON ---
DATE: 11/27/2017 HISTORY OF PRESENT ILLNESS: The patient is a 77-year-old male who presents with exertional angina. He also describes marked shortness of breath after walking two blocks. The symptoms have been progressive. PAST MEDICAL HISTORY: Includes a history of coronary artery bypass surgery as well as PTCA and stents in the past. In addition, he suffers from COPD and is an active smoker. He suffers from hypertension and hypercholesterolemia. The patient underwent cardiac catheterization 2 years ago, in which his ejection fraction was 60% with patent bypass grafts. Because of his ongoing symptoms, the patient was admitted to the hospital. SOCIAL HISTORY: The patient does still smoke. REVIEW OF SYSTEMS: A 14-point review of systems was reviewed. No additional cardiac symptoms noted. PHYSICAL EXAMINATION VITAL SIGNS: Blood pressure is 130/77, the heart rate is in the 60s. NECK: Negative JVD. LUNGS: Without rales. HEART: Reveals S1, S2. EXTREMITIES: Without edema. LABORATORY DATA: EKG shows normal sinus rhythm with inverted T-waves and abnormal ST-T changes. The hemoglobin is 13.7. Chemistries: BUN and creatinine 33 and 1.3. Initial troponin is negative. IMPRESSION: 1. Unstable angina. 2. Progressive exertional shortness of breath. 3. Chronic obstructive pulmonary disease. 4. History of coronary artery bypass surgery. 5. Hypertension. 6. Hypercholesterolemia. 7. History of percutaneous transluminal coronary angioplasty and stent in the past. PLAN: Given these findings, the patient will need to be admitted and have a myocardial infarction ruled out with serial troponins. He has been placed on aspirin. We will start him on Plavix. We will need to proceed with a cardiac catheterization. I had discussed this with the patient through a automated manufacturing instructor. The patient is oriented x3 and is able to give consent. His confusion is due to language difficulties which is all cleared through a automated manufacturing instructor. Bogdan Rajan MD
[2017-11-29 06:22] LABS: BASO # 0.02 K/mm3 (0.0-2.0); BASO % 0.2 % (0.0-3.0); EOS % 0.1 % (1.5-5.0); GRAN # 8.91 (1.4-6.5); HEMOGLOBIN 12.9 g/dL (14.0-18.0); LYMPH # 2.1 (1.2-3.4); LYMPH % 17.3 % (22.0-35.0); MEAN CORPUSCULAR HEMOGLOBIN 30.8 pg (25.0-35.0); MEAN CORPUSCULAR HGB CONC 34.6 g/dl (31.0-37.0); MEAN PLATELET VOLUME 12.3 fl (7.0-11.0); MONO # 1.3 (0.1-0.6); MONO % 10.4 % (1.0-6.0); RBC 4.19 10^6/uL (3.5-6.1); WHITE BLOOD COUNT 12.4 10^3/ul (4.5-11.0)
[2017-11-29 07:25] LABS: ALB/GLOB RATIO 1.1 (1.1-1.8); ALBUMIN 3.6 g/dL (3.0-4.8); ALT/SGPT 33 U/L (7-56); AST/SGOT 38 U/L (17-59); BLOOD UREA NITROGEN 29 mg/dL (7-21); CALCIUM 9.6 mg/dL (8.4-10.5); GFR AFRICAN-AMERICAN > 60; GFR NON-AFRICAN AMERICAN 59
[2017-11-29] MEDS: Metoprolol Succinate 25 mg XL Tab PO SCH (08:24)
[2017-11-29] MEDS: Multivitamin With Minerals Tab PO SCH (08:28)
[2017-11-29] MEDS: buPROPion 150 mg/24 Hours XL Tab PO SCH (10:27)
--- NOTE | 2017-11-29 12:13 | PN ---
DATE: 11/29/2017 CARDIOLOGY FOLLOWUP SUBJECTIVE: The patient is chest pain free. PHYSICAL EXAMINATION: VITAL SIGNS: Blood pressure is 141/77, heart rate is in the 60s. NECK: Negative JVD. LUNGS: Without rales. HEART: S1, S2. EXTREMITIES: Without edema. Right groin site is stable. LABORATORY DATA: Hemoglobin is 12.9. Chemistries: BUN and creatinine is 29 and 1.2. IMPRESSION: 1. Stable post percutaneous transluminal coronary angioplasty and stent of the saphenous vein graft to the circumflex artery with a drug-eluting stent. 2. Coronary artery disease. 3. History of coronary artery bypass surgery. 4. Hypercholesterolemia. PLAN: Given these findings, the patient is doing well post surgery. The patient can be discharged today. I have gone over medications with the patient. He will need to remain on aspirin indefinitely and Plavix for at least a year. Bogdan Rajan MD
--- NOTE | 2017-11-29 17:38 | CARD ---
APPROVED REPORT EXAM: Two-dimensional and M-mode echocardiogram with Doppler and color Doppler. INDICATION Chest Pain 2D DIMENSIONS Left Atrium (2D)4.4 (1.6-4.0cm)IVSd1.7 (0.7-1.1cm) LVDd4.5 (3.9-5.9cm)PWd1.7 (0.7-1.1cm) LVDs2.8 (2.5-4.0cm)FS (%) 37.4 % LVEF (%)67.6 (>50%) M-Mode DIMENSIONS Aortic Root3.80 (2.2-3.7cm)Aortic Cusp Exc.2.00 (1.5-2.0cm) Aortic Valve AoV Peak Xvmbuuie557.0cm/Ronnie Peak GR.9mmHg Mitral Valve MV E Gnmzwvvk47.1cm/sMV A Mjhygzrm59.1cm/sE/A ratio1.0 TDI Lateral E' Peak V7.97cm/sMedial E' Peak V4.58cm/sE/Lateral E'9.7 E/Medial E'16.8 Pulmonary Valve PV Peak Pvuammqo21.8cm/sPV Peak Grad.1mmHg Tricuspid Valve TR Peak Wghpudqe487dz/sRAP [id number] Peak Gr.18mmHg [id number] LEFT VENTRICLE The left ventricle is normal size. There is moderate concentric left ventricular hypertrophy. The left ventricular function is normal.EF-65% There is normal LV segmental wall motion. Transmitral Doppler flow pattern is Grade III-reversible restrictive diastolic dysfunction. No left ventricle thrombus noted on this study. There is no ventricular septal defect visualized. There is no left ventricular aneurysm. There is no mass noted in the left ventricle. RIGHT VENTRICLE The right ventricle is normal size. There is normal right ventricular wall thickness. The right ventricular systolic function is normal. ATRIA The left atrium is mildly dilated. The right atrium size is normal. The interatrial septum is intact with no evidence for an atrial septal defect. AORTIC VALVE The aortic valve is thickened but opens well. The aortic valve is moderately sclerotic. Trivial AR There is no aortic valvular stenosis. There is no aortic valvular vegetation. MITRAL VALVE The mitral valve is thickened but opens well. Mitral annular calcification is mild to moderate. Mitral regurgitation is mild. There is no mitral valve stenosis. There is no evidence of mitral valve prolapse. TRICUSPID VALVE The tricuspid valve leaflets are thickened , but open well. There is trace tricuspid regurgitation.RVSP-28 mmof Hg. There is no tricuspid valve stenosis. There is no tricuspid valve prolapse or vegetation. PULMONIC VALVE The pulmonary valve is normal in structure. There is trace pulmonic valvular regurgitation. There is no pulmonic valvular stenosis. GREAT VESSELS The aortic root is normal in size. The ascending aorta is normal in size. The pulmonary artery is normal. The IVC is normal in size and collapses >50% with inspiration. PERICARDIAL EFFUSION There is no pleural effusion. There is no pericardial effusion. <Conclusion> The left ventricular function is normal.EF-65% Trivial AR There is no aortic valvular stenosis. Mitral regurgitation is mild. There is trace tricuspid regurgitation.RVSP-28 mmof Hg. The IVC is normal in size and collapses >50% with inspiration. There is no pericardial effusion. No vegetation Noted.
--- NOTE | 2017-11-30 02:32 | DS ---
LOCATION: Patient is in room 267, bed 1. SUBJECTIVE: He initially presented on 11/27 with a chief complaint of chest pain. It is 1 week in duration, non-radiating, and is substernal. PAST MEDICAL HISTORY: The patient has prior medical history of coronary artery disease, status post CABG, also HTN, BPH, COPD, depression, dementia, and alcohol use disorder. ALLERGIES: TO SHELLFISH AND NUTS THAT IS PREVIOUSLY NOTED. SOCIAL HISTORY: The patient does smoke and does imbibe alcoholic beverages. OBJECTIVE: VITAL SIGNS: Temperature is 97.6, pulse rate of 70, blood pressure 139/77, respiratory rate of 20 with an O2 saturation of 95% on room air. HEENT: PERRLA, EOMI. There is no icterus. NECK: Supple with full range of motion. No JVD or bruits present. LUNGS: Clear to auscultation and percussion bilaterally. HEART: With regular rate and rhythm. No murmurs. ABDOMEN: Soft, is nontender. There is no organomegaly. EXTREMITIES: Show no deformities or edema. NEUROLOGICAL: There are no focal motor deficits. DIAGNOSES: At this time: 1. Chest pain. 2. Coronary artery disease. 3. Hypertension. 4. Noncompliance. The patient did receive a stent yesterday. He will be sent home today and will be seen in the office in 1 week's duration. Clive Fox MD
[2017-11-30 07:04] LABS: BASO # 0.03 K/mm3 (0.0-2.0); BASO % 0.3 % (0.0-3.0); EOS # 0.3 (0.0-0.7); EOS % 2.8 % (1.5-5.0); GRAN # 5.22 (1.4-6.5); GRAN % 55.2 % (50.0-68.0); HEMOGLOBIN 12.5 g/dL (14.0-18.0); LYMPH # 3.1 (1.2-3.4); LYMPH % 32.9 % (22.0-35.0); MEAN CELL VOLUME 89.9 fl (80.0-105.0); MEAN CORPUSCULAR HEMOGLOBIN 30.8 pg (25.0-35.0); MEAN CORPUSCULAR HGB CONC 34.2 g/dl (31.0-37.0); MEAN PLATELET VOLUME 13.4 fl (7.0-11.0); MONO # 0.8 (0.1-0.6); MONO % 8.8 % (1.0-6.0); RBC 4.06 10^6/uL (3.5-6.1); RED CELL DISTRIBUTION WIDTH 14.1 % (11.5-14.5); WHITE BLOOD COUNT 9.5 10^3/ul (4.5-11.0)
[2017-11-30 07:24] LABS: ALB/GLOB RATIO 1.1 (1.1-1.8); ALBUMIN 3.5 g/dL (3.0-4.8); ALT/SGPT 45 U/L (7-56); AST/SGOT 44 U/L (17-59); BLOOD UREA NITROGEN 30 mg/dL (7-21); CALCIUM 9.1 mg/dL (8.4-10.5); GFR AFRICAN-AMERICAN > 60; GFR NON-AFRICAN AMERICAN 59
[2017-11-30] MEDS: Multivitamin With Minerals Tab PO SCH (08:55)
[2017-11-30] MEDS: Metoprolol Succinate 25 mg XL Tab PO SCH (08:55)
--- NOTE | 2017-11-30 11:37 | PN ---
SUBJECTIVE: The patient was seen and examined at bedside on the general medical ospina. No acute events overnight. He remains afebrile, hemodynamically stable and is doing well s/p cardiac catheterization with stent placement after being admitted for angina. He is presently pending discharge to a subacute rehab given his deconditioned status. PHYSICAL EXAMINATION VITAL SIGNS: Temperature 98.4, pulse 66, blood pressure 141/77, respiratory rate 18, oxygen saturation 98% on room air. GENERAL: No apparent distress. HEENT: PERRL. EOMI. No scleral icterus. No conjunctival pallor. NECK: No JVD. LUNGS: Clear to auscultation. CARDIOVASCULAR: Regular rate and rhythm. Normal S1 and S2. ABDOMEN: Normoactive bowel sounds. Soft, nontender, nondistended. EXTREMITIES: No edema. NEUROLOGIC: Awake, alert and oriented x3. No focal motor deficits. LABORATORY DATA: WBC 9.5, hemoglobin 12.5, hematocrit 36.5, platelet 159,000. Chemistry reviewed and unremarkable. ASSESSMENT: The patient is a 77 year old man with a past medical history of CAD s/p PCI with stent placement s/p CABG, HTN, COPD, BPH, dementia and history of alcohol abuse who presented for evaluation of chest pain who is now s/p PCI with MARIAH stent placement to the circumflex artery and is pending placement to subacute rehab. PLAN 1. CAD s/p CABG s/p PCI with stent placement. Input from Dr. Rajan noted and greatly appreciated. The patient remains hemodynamically stable and chest pain free. Continue Aspirin 81 mg p.o. daily, Plavix 75 mg p.o. daily and Toprol-XL 12.5 mg p.o. daily. 2. Hypertension, blood pressure controlled. Continue Lisinopril 10 mg p.o. daily and Toprol-XL 12.5 mg p.o. daily. 3. BPH. Continue Flomax 0.8 mg p.o. daily. 4. COPD. Continue supplemental oxygen and bronchodilators as needed. 5. Depression. Continue Wellbutrin XL 150 mg p.o. daily and Lexapro 20 mg p.o. daily. 6. Anxiety. Continue Ativan 1 mg IV every 6 hours as needed for anxiety. 7. Tobacco dependence. Continue nicotine 7 mg transdermal patch daily. 8. Prophylaxis. Continue with Pepcid for GI prophylaxis. DVT prophylaxis is not indicated as the patient is ambulatory. CODE STATUS: Full code. Hu Fox MD MANDA
[2017-11-30] MEDS: buPROPion 150 mg/24 Hours XL Tab PO SCH (12:52)
[2017-11-30 22:12] VITALS: RESP 18; TEMP 98; O2SAT 97
--- NOTE | 2017-11-30 22:44 | CP.PCM.PN ---
Subjective - Date & Time of Evaluation Date of Evaluation: 11/30/17 Time of Evaluation: 22:43 - Subjective Subjective: Patient was seen because of confusion , restlessness, trying to get out of bed. BP 154/88,P 80/min, FSBS 79 mg %. As per nurse family members did not want patient to have ativan. There is an order for ativan , klonopin. Klonopin was given but not helping much. This 77 year old white male was admitted with substernal chest pain. Has PMH of HTN,COPD,CAD, S/P CABG, multiple coronary stensts placement, dementia , Deperssion, BPH. Objective - Vital Signs/Intake and Output Vital Signs (last 24 hours): Temp Pulse Resp BP Pulse Ox 98 F 80 18 174/105 H 97 11/30/17 22:11 11/30/17 22:24 11/30/17 22:11 11/30/17 22:24 11/30/17 22:11 Intake and Output: 11/30/17 12/01/17 18:59 06:59 Intake Total 480 300 Output Total 400 Balance 80 300 - Medications Medications: Current Medications Albuterol/Ipratropium (Duoneb 3 Mg/0.5 Mg (3 Ml) Ud) 3 ml IH Q2H PRN PRN Reason: Shortness of Breath Aspirin (Ecotrin) 81 mg PO DAILY [facility] Last Admin: 11/30/17 12:52 Dose: 81 mg Bupropion HCl (Wellbutrin Xl) 150 mg PO DAILY [facility] Last Admin: 11/30/17 12:52 Dose: 150 mg Clonazepam (Klonopin) 1 mg PO HS PRN; Protocol PRN Reason: Anxiety Last Admin: 11/30/17 21:29 Dose: 1 mg Clopidogrel Bisulfate (Plavix) 75 mg PO DAILY [facility] Last Admin: 11/30/17 12:52 Dose: 75 mg Escitalopram Oxalate (Lexapro) 20 mg PO DAILY [facility] Last Admin: 11/30/17 12:52 Dose: 20 mg Famotidine (Pepcid) 20 mg PO HS [facility] Last Admin: 11/30/17 21:29 Dose: 20 mg Folic Acid (Folic Acid) 1 mg PO DAILY [facility] Last Admin: 11/30/17 12:52 Dose: 1 mg Lisinopril (Zestril) 10 mg PO DAILY [facility] Last Admin: 11/30/17 12:52 Dose: 10 mg Lorazepam (Ativan) 1 mg IVP Q6H PRN; Protocol PRN Reason: Symptoms of alcohol withdrawl Last Admin: 11/30/17 18:07 Dose: 1 mg Memantine (Namenda) 5 mg PO HS [facility] Last Admin: 11/30/17 21:29 Dose: 5 mg Metoprolol Succinate (Toprol Xl) 12.5 mg PO BRK [facility] Last Admin: 11/30/17 08:55 Dose: 12.5 mg Multivitamins/Minerals (Therapeutic-M Tab) 1 tab PO 0800 [facility] Last Admin: 11/30/17 08:55 Dose: 1 tab Nicotine (Nicoderm Cq) 1 patch TD DAILY [facility] Last Admin: 11/30/17 12:51 Dose: 1 patch Tamsulosin HCl (Flomax) 0.8 mg PO DAILY [facility] Last Admin: 11/30/17 12:52 Dose: 0.8 mg Thiamine HCl (Vitamin B1 Tab) 100 mg PO DAILY [facility] Last Admin: 11/30/17 12:53 Dose: 100 mg - Labs Labs: 11/30/17 06:00 11/30/17 06:00 PT 11.7 SECONDS (9.4-12.5) 11/27/17 15:15 INR 1.03 (0.93-1.08) 11/27/17 15:15 APTT 30.6 Seconds (25.1-36.5) 11/28/17 04:10 Most Recent Lab Values WBC 9.5 10^3/ul (4.5-11.0) D 11/30/17 06:00 RBC 4.06 10^6/uL (3.5-6.1) 11/30/17 06:00 Hgb 12.5 g/dL (14.0-18.0) L 11/30/17 06:00 Hct 36.5 % (42.0-52.0) L 11/30/17 06:00 MCV 89.9 fl (80.0-105.0) 11/30/17 06:00 MCH 30.8 pg (25.0-35.0) 11/30/17 06:00 MCHC 34.2 g/dl (31.0-37.0) 11/30/17 06:00 RDW 14.1 % (11.5-14.5) 11/30/17 06:00 Plt Count 159 10^3/uL (120.0-450.0) 11/30/17 06:00 MPV 13.4 fl (7.0-11.0) H 11/30/17 06:00 Gran % 55.2 % (50.0-68.0) 11/30/17 06:00 Lymph % (Auto) 32.9 % (22.0-35.0) 11/30/17 06:00 Clinch % (Auto) 8.8 % (1.0-6.0) H 11/30/17 06:00 Eos % (Auto) 2.8 % (1.5-5.0) 11/30/17 06:00 Baso % (Auto) 0.3 % (0.0-3.0) 11/30/17 06:00 Gran # 5.22 (1.4-6.5) 11/30/17 06:00 Lymph # (Auto) 3.1 (1.2-3.4) 11/30/17 06:00 Clinch # (Auto) 0.8 (0.1-0.6) H 11/30/17 06:00 Eos # (Auto) 0.3 (0.0-0.7) 11/30/17 06:00 Baso # (Auto) 0.03 K/mm3 (0.0-2.0) 11/30/17 06:00 PT 11.7 SECONDS (9.4-12.5) 11/27/17 15:15 INR 1.03 (0.93-1.08) 11/27/17 15:15 APTT 30.6 Seconds (25.1-36.5) 11/28/17 04:10 Sodium 143 mmol/L (132-148) 11/30/17 06:00 Potassium 4.0 mmol/L (3.6-5.0) 11/30/17 06:00 Chloride 109 mmol/L (98-107) H 11/30/17 06:00 Carbon Dioxide 26 mmol/L (21-33) 11/30/17 06:00 Anion Gap 13 (10-20) 11/30/17 06:00 BUN 30 mg/dL (7-21) H 11/30/17 06:00 Creatinine 1.2 mg/dl (0.8-1.5) 11/30/17 06:00 Est GFR ( Amer) > 60 11/30/17 06:00 Est GFR (Non-Af Amer) 59 11/30/17 06:00 POC Glucose (mg/dL) 79 mg/dL (65-110) 11/30/17 22:03 Random Glucose 84 mg/dL (70-110) 11/30/17 06:00 Hemoglobin A1c 5.7 % (4.2-6.5) 11/27/17 15:15 Calcium 9.1 mg/dL (8.4-10.5) 11/30/17 06:00 Magnesium 2.3 mg/dL (1.7-2.2) H 11/27/17 15:15 Total Bilirubin 0.7 mg/dL (0.2-1.3) 11/30/17 06:00 AST 44 U/L (17-59) 11/30/17 06:00 ALT 45 U/L (7-56) 11/30/17 06:00 Alkaline Phosphatase 67 U/L (38-126) 11/30/17 06:00 Lactate Dehydrogenase 457 U/L (333-699) 11/27/17 15:15 Total Creatine Kinase 152 U/L (35-230) 11/27/17 15:15 Troponin I < 0.01 ng/mL 11/28/17 11:15 NT-Pro-B Natriuret Pep 231 pg/mL (0-450) 11/27/17 15:15 Total Protein 6.5 g/dL (5.8-8.3) 11/30/17 06:00 Albumin 3.5 g/dL (3.0-4.8) 11/30/17 06:00 Globulin 3.0 gm/dL 11/30/17 06:00 Albumin/Globulin Ratio 1.1 (1.1-1.8) 11/30/17 06:00 Triglycerides 175 mg/dL (35-160) H 11/27/17 15:15 Cholesterol 179 mg/dL (130-200) 11/27/17 15:15 LDL Cholesterol Direct 128 mg/dL (0-129) 11/27/17 15:15 HDL Cholesterol 30 mg/dL (29-60) 11/27/17 15:15 Urine Color Yellow (YELLOW) 11/27/17 17:38 Urine Appearance Clear (CLEAR) 11/27/17 17:38 Urine pH 6.0 (4.7-8.0) 11/27/17 17:38 Ur Specific [place] 1.025 (1.005-1.035) 11/27/17 17:38 Urine Protein Negative mg/dL (<30 mg/dL) 11/27/17 17:38 Urine Glucose (UA) Negative mg/dL (NEGATIVE) 11/27/17 17:38 Urine Ketones Negative mg/dL (NEGATIVE) 11/27/17 17:38 Urine Blood Negative (NEGATIVE) 11/27/17 17:38 Urine Nitrate Negative (NEGATIVE) 11/27/17 17:38 Urine Bilirubin Negative (NEGATIVE) 11/27/17 17:38 Urine Urobilinogen 0.2 E.U./dL (<1 E.U./dL) 11/27/17 17:38 Ur Leukocyte Esterase Negative Kayla/uL (NEGATIVE) 11/27/17 17:38 Urine Opiates Screen Negative (NEGATIVE) 11/27/17 17:38 Urine Methadone Screen Negative (NEGATIVE) 11/27/17 17:38 Ur Barbiturates Screen Negative (NEGATIVE) 11/27/17 17:38 Ur Phencyclidine Scrn Negative (NEGATIVE) 11/27/17 17:38 Ur Amphetamines Screen Negative (NEGATIVE) 11/27/17 17:38 U Benzodiazepines Scrn Negative (NEGATIVE) 11/27/17 17:38 U Oth Cocaine Metabols Negative (NEGATIVE) 11/27/17 17:38 U Cannabinoids Screen Negative (NEGATIVE) 11/27/17 17:38 Alcohol, Quantitative < 10 mg/dL (0-10) 11/27/17 18:15 - Constitutional Appears: Well, No Acute Distress - Head Exam Head Exam: ATRAUMATIC, NORMAL INSPECTION, NORMOCEPHALIC - Eye Exam Eye Exam: Normal appearance - ENT Exam ENT Exam: Normal External Ear Exam - Neck Exam Neck Exam: Normal Inspection - Respiratory Exam Respiratory Exam: NORMAL BREATHING PATTERN - Cardiovascular Exam Cardiovascular Exam: absent: JVD - GI/Abdominal Exam GI & Abdominal Exam: absent: Distended - Rectal Exam Rectal Exam: Deferred - Exam Additional comments: Deferred. - Extremities Exam Extremities Exam: Normal Inspection - Back Exam Back Exam: NORMAL INSPECTION - Neurological Exam Neurological Exam: Altered Additional comments: Confused. - Psychiatric Exam Psychiatric exam: Agitated - Skin Skin Exam: Normal Color Assessment and Plan - Assessment and Plan (Free Text) Assessment: Dementia. Confusion. HTN. COPD. CAD. Depression. BPH. Plan: Geodon 20 mg IM x 1.
[2017-12-01 06:42] VITALS: BP 113/69; PULSE 60
[2017-12-01] MEDS: Multivitamin With Minerals Tab PO SCH (10:13)
[2017-12-01] MEDS: Metoprolol Succinate 25 mg XL Tab PO SCH (10:20)
[2017-12-01] MEDS: buPROPion 150 mg/24 Hours XL Tab PO SCH (10:20)
--- NOTE | 2017-12-01 16:37 | PN ---
SUBJECTIVE: The patient was seen and examined at bedside on the general medical ospina. Overnight he was again noted to be intermittently delirious, necessitating Geodon. This morning I had an extensive discussion with the patient's daughter regarding his clinical status and she was advised that his symptoms are consistent with sundowning and will improve gradually. He is presently pending discharge to subacute rehab. PHYSICAL EXAMINATION: VITAL SIGNS: Temperature 98, pulse 60, blood pressure 113/69, respiratory rate 18, and oxygen saturation 97% on room air. GENERAL: No apparent distress. HEENT: PERRL. EOMI. No scleral icterus. No conjunctival pallor. NECK: No JVD. LUNGS: Clear to auscultation. CARDIOVASCULAR: Regular rate and rhythm. Normal S1 and S2. ABDOMEN: Normoactive bowel sounds. Soft, nontender, nondistended. EXTREMITIES: No edema. NEUROLOGIC: Awake, alert, and oriented x3. No focal motor deficits. LABORATORY DATA: Morning labs are pending. ASSESSMENT: The patient is a 77 year old man with a past medical history of CAD s/p CABG, HTN, COPD, BPH, dementia and history of alcohol abuse who presented for evaluation of chest pain who is now s/p PCI with MARIAH stent placement to the circumflex lesion and pending placement to subacute rehab. PLAN: 1. CAD s/p CABG s/p PCI with MARIAH stent placement to circumflex lesion. Input from Dr. Rajan noted and appreciated. The patient remains hemodynamically stable and chest pain free. Continue Aspirin 81 mg p.o. daily, Plavix 75 mg p.o. daily, and Toprol-XL 12.5 mg p.o. daily. 2. Hypertension, blood pressure controlled. Continue Lisinopril 10 mg p.o. daily and Toprol-XL 12.5 mg p.o. daily. 3. BPH. Continue Flomax 0.8 mg p.o. daily. 4. COPD. Continue supplemental oxygen and bronchodilators as needed. 5. Depression. Continue Wellbutrin XL 150 mg p.o. daily and Lexapro 20 mg p.o. daily. 6. Anxiety disorder. Continue Klonopin 1 mg p.o. at bedtime as needed. 7. Dementia. Continue Namenda 5 mg p.o. at bedtime. 8. Tobacco dependence. Continue Nicotine 7 mg TD patch daily. 9. Prophylaxis. Continue with Pepcid for GI prophylaxis. DVT prophylaxis not indicated as the patient is ambulatory. 10. Disposition: The patient medically cleared for discharge to subacute rehab. CODE STATUS: Full code. Hu Fox MD [id number]
== END 2017-12-01 14:19 | DRG 247 ==
LOC: ED 14:53 → ERH 16:19 → 2RNO 20:12 → OBSVTOIN 11-28 15:15 → 5RSO 11-29 16:20
PROVIDERS: ADMIT Internal Medicine; ATTEND Internal Medicine
PROC: 027034Z Dilation of Coronary Artery, One Artery with Drug-eluting Intraluminal Device, Percutaneous Approach (ICD-10-PCS; principal; 2017-11-28)
PROC: 4A023N7 Measurement of Cardiac Sampling and Pressure, Left Heart, Percutaneous Approach (ICD-10-PCS; 2017-11-28)
PROC: B211YZZ Fluoroscopy of Multiple Coronary Arteries using Other Contrast (ICD-10-PCS; 2017-11-28)
PROC: B215YZZ Fluoroscopy of Left Heart using Other Contrast (ICD-10-PCS; 2017-11-28)
PROC: B212YZZ Fluoroscopy of Single Coronary Artery Bypass Graft using Other Contrast (ICD-10-PCS; 2017-11-28)
DX: I25.110 Atherosclerotic heart disease of native coronary artery with unstable angina pectoris (principal); F05 Delirium due to known physiological condition; J44.9 Chronic obstructive pulmonary disease, unspecified; F03.90 Unspecified dementia, unspecified severity, without behavioral disturbance, psychotic disturbance, mood disturbance, and anxiety; F17.210 Nicotine dependence, cigarettes, uncomplicated; E78.00 Pure hypercholesterolemia, unspecified; I10 Essential (primary) hypertension; N40.0 Benign prostatic hyperplasia without lower urinary tract symptoms; F32.9 Major depressive disorder, single episode, unspecified; F10.10 Alcohol abuse, uncomplicated; F41.9 Anxiety disorder, unspecified; Z91.19 Patient's noncompliance with other medical treatment and regimen; Z95.1 Presence of aortocoronary bypass graft; Z95.5 Presence of coronary angioplasty implant and graft; Z90.81 Acquired absence of spleen; Z79.82 Long term (current) use of aspirin

== ENCOUNTER 2018-04-29 18:16 | Inpatient (IN) | payer MEDICARE ==
--- NOTE | 2018-04-29 18:48 | ED PDOC ---
Arrival/HPI - General Chief Complaint: Trauma Time Seen by Provider: 04/29/18 18:17 Historian: Patient - History of Present Illness Narrative History of Present Illness (Text): 04/29/18 18:45 78 year old male with a past medical history of CAD s/p CABG and three MARIAH(~2011 ), HTN, BPH, COPD, depression, dementia, alcohol use disorder and tobacco use disorder, presents to the Emergency Department complaining of right hip and right elbow discomfort s/p fall prior to arrival. Patient states he was smoking in his balcony when he fell on his right side trying to open the door sustaining pain to his right hip and elbow. Patient denies hitting his head or loss of consciousness. Patient denies any fever, chills, nausea, vomiting, diarrhea, abdominal pain, chest pain, shortness of breath, cough, headache, dizziness, neck pain, back pain, or any other complaints. Patient presents to the Emergency Department for medical evaluation. Time/Duration: Prior to Arrival Symptom Onset: Gradual Symptom Course: Unchanged Quality: Aching Activities at Onset: Light Context: Home Past Medical History - Provider Review Nursing Documentation Reviewed: Yes - Past History Past History: No Previous - Infectious Disease Hx of Infectious Diseases: None - Tetanus Immunization Tetanus Immunization: Unknown - Cardiac Hx Hypertension: Yes - Pulmonary Hx Chronic Obstructive Pulmonary Disease (COPD): Yes - Neurological Hx Neurological Disorder: No Hx Alzheimer's Disease: No HX Cerebrovascular Accident: No Hx Dementia: No Hx Dizziness: No Hx Meningitis: No Hx Migraine: No Hx Parkinson's Disease: No Hx Seizures: No Hx Transient Ischemic Attacks (TIA): No - HEENT Hx HEENT Disorder: Yes (wears glasses) - Renal Hx Renal Disorder: No - Endocrine/Metabolic Hx Endocrine Disorders: No Hx Adrenal Cancer: No Hx Diabetes Insipidus: No Hx Diabetes Mellitus Type 1: No Hx Diabetes Mellitus Type 2: No Hx Hyperthyroidism: No Hx Hypothyroidism: No Hx Systemic Lupus Erythematosus: No - Hematological/Oncological Hx Cancer: Yes (Skin cancer) - Integumentary Hx Dermatological Disorder: Yes (skin cancer) - Musculoskeletal/Rheumatological Hx Musculoskeletal Disorders: Yes Hx Arthritis: Yes Hx Back Pain: Yes Hx Unsteady Gait: Yes - Gastrointestinal Hx Gastrointestinal Disorders: Yes Hx Gall Bladder Disease: Yes - Genitourinary/Gynecological Hx Genitourinary Disorders: Yes Hx Prostate Problems: Yes - Psychiatric Hx Psychophysiologic Disorder: Yes (Hx ETOH) Hx Substance Use: No - Surgical History Hx Appendectomy: No Hx Cardiac Catheterization: Yes Hx Cholecystectomy: Yes Hx Coronary Stent: Yes Hx Gastric Bypass Surgery: No Hx Hysterectomy: No Hx Inguinal Hernia Repair: No Hx Joint Replacement: No Hx Kidney Transplant: No Hx Liver Transplant: No Hx Mastectomy: No Hx Musculoskeletal Surgery: No Hx Open Heart Surgery: No Hx Orthopedic Surgery: No Hx Splenectomy: Yes Hx Valve Replacement: No - Anesthesia Hx Malignant Hyperthermia: Yes - Suicidal Assessment Feels Threatened In Home Enviroment: No Family/Social History - Physician Review Nursing Documentation Reviewed: Yes Family/Social History: No Known Family HX Smoking Status: Current Some Days Smoker Hx Alcohol Use: Yes Hx Substance Use: No Hx Substance Use Treatment: No Allergies/Home Meds Allergies/Adverse Reactions: Allergies shellfish derived Allergy (Verified 11/27/17 15:06) ANAPHYLAXIS NUTS Allergy (Severe, Uncoded 11/27/17 15:06) SWELLING TONGUE SWELLS Home Medications: Home Meds Medication Instructions Recorded Confirmed Aspirin [Adult Low Dose Aspirin EC] 81 mg PO DAILY 11/27/17 04/29/18 Tamsulosin [Flomax] 0.8 mg PO DAILY 11/27/17 04/29/18 Atorvastatin [Lipitor] 40 mg PO DAILY 04/29/18 04/29/18 Clopidogrel [Plavix] 75 mg PO DAILY 04/29/18 04/29/18 Escitalopram [Lexapro] 20 mg PO DAILY 04/29/18 04/29/18 Famotidine [Pepcid] 20 mg PO DAILY 04/29/18 04/29/18 Folic Acid [Folic Acid] 1 mg PO DAILY 04/29/18 04/29/18 Lisinopril [Zestril] 10 mg PO DAILY 04/29/18 04/29/18 Memantine [Namenda] 10 mg PO BID 04/29/18 04/29/18 Metoprolol Succinate [Toprol Xl] 12.5 mg PO DAILY 04/29/18 04/29/18 Thiamine [Vitamin B1 Tab] 100 mg PO DAILY 04/29/18 04/29/18 Review of Systems - Physician Review All systems were reviewed & negative as marked: Yes - Review of Systems Constitutional: absent: Fevers Respiratory: absent: SOB, Cough Cardiovascular: absent: Chest Pain, Palpitations Gastrointestinal: absent: Abdominal Pain, Diarrhea, Nausea, Vomiting Musculoskeletal: Other (right elbow and right hip discomfort). absent: Back Pain, Neck Pain Neurological: absent: Headache, Dizziness Physical Exam Vital Signs Reviewed: Yes Vital Signs Temp Pulse Resp BP Pulse Ox 04/29/18 21:49 64 17 142/73 96 04/29/18 19:36 68 18 149/80 97 04/29/18 18:16 98.4 F 67 18 151/76 H 98 Temperature: Afebrile Blood Pressure: Normal Pulse: Regular Respiratory Rate: Normal Appearance: Positive for: Well-Appearing, Non-Toxic, Comfortable Pain Distress: None Mental Status: Positive for: Alert and Oriented X 3 - Systems Exam Head: Present: Atraumatic, Normocephalic Pupils: Present: PERRL Extroacular Muscles: Present: EOMI Conjunctiva: Present: Normal Neck: Present: Normal Range of Motion Respiratory/Chest: Present: Clear to Auscultation, Good Air Exchange. No: Respiratory Distress, Accessory Muscle Use Cardiovascular: Present: Regular Rate and Rhythm, Normal S1, S2. No: Murmurs Abdomen: No: Tenderness, Distention, Peritoneal Signs Back: Present: Normal Inspection. No: CVA Tenderness, Midline Tenderness Upper Extremity: Present: Normal Inspection, Normal ROM, Neurovascularly Intact. No: Cyanosis, Edema Lower Extremity: Present: Tenderness (tender to lateral aspect of right hip). No: Edema Neurological: Present: GCS=15, CN II-XII Intact, Speech Normal Skin: Present: Warm, Dry, Normal Color, Abrasion (right arm). No: Rashes Psychiatric: Present: Alert, Oriented x 3, Normal Insight, Normal Concentration Medical Decision Making ED Course and Treatment: 04/29/18 18:51 Impression: 78 year old male presents to the Emergency Department for right elbow and right hip discomfort s/p fall. Differential Diagnosis included but are not limited to: fracture vs. dislocation Plan: -- EKG -- Labs -- X-ray of right elbow -- X-ray of hip -- Reassess and disposition Prior Visits: Notes and results from previous visits were reviewed. Progress Notes: 04/29/18 18:51 EKG: Ordered, reviewed, and independently interpreted the EKG. Rate : 68 BPM Rhythm : NSR Interpretation : Lateral wall t wave inversion. No change from previous. 04/29/18 20:51 Discussed case with PMD, who is aware and agrees with Emergency Department management plan, requests Dr. Blackwell on Ortho consult. Discussed case with Dr. Blackwell, who is aware and agrees with Emergency Department management plan, accepts patient under her service. Will see patient in her outpatient office tomorrow. Requests patient to be NPO after midnight. - Lab Interpretations Lab Results: 04/29/18 19:00 04/29/18 19:00 Lab Results 04/29/18 19:00: Alcohol, Quantitative < 10 04/29/18 19:00: PT 12.0, INR 1.05, APTT 26.6 04/29/18 19:00: Sodium 141, Potassium 4.4, Chloride 104, Carbon Dioxide 25, Anion Gap 16, BUN 29 H, Creatinine 1.3, Est GFR ( Amer) > 60, Est GFR ( Non-Af Amer) 54, Random Glucose 129 H, Calcium 9.3, Total Bilirubin 0.4, AST 24 , ALT 25, Alkaline Phosphatase 114, Troponin I < 0.01, Total Protein 7.6, Albumin 4.1, Globulin 3.5, Albumin/Globulin Ratio 1.2 04/29/18 19:00: WBC 9.4, RBC 4.48, Hgb 13.7 L, Hct 39.5 L, MCV 88.2, MCH 30.6, MCHC 34.7, RDW 14.4, Plt Count 147, MPV 13.2 H, Gran % 66.3, Lymph % (Auto) 23.2 , Mchenry % (Auto) 8.0 H, Eos % (Auto) 2.2, Baso % (Auto) 0.3, Gran # 6.24, Lymph # (Auto) 2.2, Mchenry # (Auto) 0.8 H, Eos # (Auto) 0.2, Baso # (Auto) 0.03 - RAD Interpretation Radiology Orders: 04/29/18 18:45 ELBOW RIGHT 3 VIEWS ROUTINE [RAD] Stat HIP MIN 2V W/ PELVIS RT [RAD] Stat - Medication Orders Current Medication Orders: Sodium Chloride (Sodium Chloride 0.9%) 1,000 mls @ 100 mls/hr IV .Q10H CEDRICK Discontinued Medications Morphine Sulfate (Morphine) 2 mg IVP STAT STA Stop: 04/29/18 19:29 Last Admin: 04/29/18 19:37 Dose: 2 mg MAR Pain Assessment Document 04/29/18 19:37 SF (Rec: 04/29/18 19:38 [email or web address] Pain Reassessment Is this a pain reassessment? Yes Sleep Is patient sleeping during reassessment? No Presence of Pain Presence of Pain Yes Pain Scale Used Pain Scale Used Numeric Location Left, Right or Bilateral Right Pain Location Body Site Elbow Hip Description Description Constant Intensity of Pain at present 10 IVP Administration Document 04/29/18 19:37 SF (Rec: 04/29/18 19:38 SF [facility] [id number] Charges for Administration # of IVP Administrations 1 Morphine Sulfate (Morphine) 2 mg IVP STAT STA Stop: 04/29/18 21:19 Last Admin: 04/29/18 21:27 Dose: 2 mg MAR Pain Assessment Document 04/29/18 21:27 HI (Rec: 04/29/18 21[facility]28 [id number] Pain Reassessment Is this a pain reassessment? Yes Sleep Is patient sleeping during reassessment? No Presence of Pain Presence of Pain Yes Location Left, Right or Bilateral Right Pain Location Body Site Hip IVP Administration Document 04/29/18 21:27 HI (Rec: 04/29/18 21:28 [id number] Charges for Administration # of IVP Administrations 1 - Scribe Statement The provider has reviewed the documentation as recorded by the Scribe Delores Patel. All medical record entries made by the Scribe were at my direction and personally dictated by me. I have reviewed the chart and agree that the record accurately reflects my personal performance of the history, physical exam, medical decision making, and the department course for this patient. I have also personally directed, reviewed, and agree with the discharge instructions and disposition. Disposition/Present on Arrival - Present on Arrival Any Indicators Present on Arrival: No History of DVT/PE: No History of Uncontrolled Diabetes: No Urinary Catheter: No History of Decub. Ulcer: No History Surgical Site Infection Following: None - Disposition Have Diagnosis and Disposition been Completed?: Yes Diagnosis: Closed right hip fracture Disposition: HOSPITALIZED Disposition Time: 20:10 Condition: FAIR
[2018-04-29 19:24] LABS: BASO # 0.03 K/mm3 (0.0-2.0); BASO % 0.3 % (0.0-3.0); EOS # 0.2 (0.0-0.7); EOS % 2.2 % (1.5-5.0); GRAN # 6.24 (1.4-6.5); GRAN % 66.3 % (50.0-68.0); HEMOGLOBIN 13.7 g/dL (14.0-18.0); LYMPH # 2.2 (1.2-3.4); LYMPH % 23.2 % (22.0-35.0); MEAN CELL VOLUME 88.2 fl (80.0-105.0); MEAN CORPUSCULAR HEMOGLOBIN 30.6 pg (25.0-35.0); MEAN CORPUSCULAR HGB CONC 34.7 g/dl (31.0-37.0); MEAN PLATELET VOLUME 13.2 fl (7.0-11.0); MONO # 0.8 (0.1-0.6); RBC 4.48 10^6/uL (3.5-6.1); RED CELL DISTRIBUTION WIDTH 14.4 % (11.5-14.5); WHITE BLOOD COUNT 9.4 10^3/ul (4.5-11.0)
[2018-04-29] MEDS ORDERED: Morphine 2 mg/ml ISec IVP STA ×2 (19:28→21:18)
[2018-04-29 19:32] LABS: INR 1.05; PARTIAL THROMBOPLASTIN TIME 26.6 Seconds (25.1-36.5)
[2018-04-29 19:36] LABS: ALB/GLOB RATIO 1.2 (1.1-1.8); ALBUMIN 4.1 g/dL (3.0-4.8); ALT/SGPT 25 U/L (7-56); AST/SGOT 24 U/L (17-59); BLOOD UREA NITROGEN 29 mg/dL (7-21); CALCIUM 9.3 mg/dL (8.4-10.5); GFR AFRICAN-AMERICAN > 60; GFR NON-AFRICAN AMERICAN 54
[2018-04-29 19:47] LABS: TROPONIN I < 0.01 ng/mL
[2018-04-29 22:30] VITALS: O2SAT 94
[2018-04-30 03:18] VITALS: BMI 31.3
[2018-04-30] MEDS: Sodium Chloride 0.9% 1,000 ML IV SCH ×3 (06:11→17:03)
[2018-04-30] MEDS: HYDROmorphone 0.5 mg/0.5 ml ISec SC PRN ×2 (06:13→11:27)
[2018-04-30 07:14] LABS: BASO # 0.02 K/mm3 (0.0-2.0); BASO % 0.1 % (0.0-3.0); EOS # 0.2 (0.0-0.7); EOS % 1.2 % (1.5-5.0); GRAN # 9.91 (1.4-6.5); GRAN % 71.8 % (50.0-68.0); HEMOGLOBIN 13.7 g/dL (14.0-18.0); LYMPH # 2.7 (1.2-3.4); LYMPH % 19.3 % (22.0-35.0); MEAN CELL VOLUME 87.6 fl (80.0-105.0); MEAN CORPUSCULAR HEMOGLOBIN 30.4 pg (25.0-35.0); MEAN CORPUSCULAR HGB CONC 34.8 g/dl (31.0-37.0); MEAN PLATELET VOLUME 13.3 fl (7.0-11.0); MONO # 1.1 (0.1-0.6); MONO % 7.6 % (1.0-6.0); RBC 4.5 10^6/uL (3.5-6.1); RED CELL DISTRIBUTION WIDTH 14.3 % (11.5-14.5); WHITE BLOOD COUNT 13.8 10^3/ul (4.5-11.0)
[2018-04-30 07:21] LABS: INR 1.08; PARTIAL THROMBOPLASTIN TIME 27.4 Seconds (25.1-36.5); PROTHROMBIN TIME 12.4 SECONDS (9.4-12.5)
--- NOTE | 2018-04-30 07:36 | CON ---
Copied To: Nishant Blackwell DO Attending MD: Nishant Blackwell DO DATE: 04/30/2018 ORTHOPEDIC CONSULT TIME: 6:00 a.m. HISTORY OF PRESENT ILLNESS: The patient is a male, 78-year-old. History of slipping and falling at home on 04/29/2018 and injuring his right hip. X-rays in the ER showed a displaced subcapital fracture, right hip. Usually treated with a bipolar hip prosthesis. This was explained to the patient and the family. I talked to his daughter, Marley Villatoro, her phone number is [phone]. I explained that I would first need the patient's cooperation to perform a right hip bipolar prosthesis that would be the best way to get him as close to his previous physical state, so he cannot walk the way it is right now with a broken right hip subcapital, so we need a bipolar prosthesis. I did not want to offer him a total hip replacement as that would be even more risky. This patient was a little confused and that other issues that allow him not to cooperate that well. I told that to the family I would need his good cooperation after the surgery so the hip does not dislocate or have other problems like falling where he could re-break the hip or femur. So that to watch him closely and he will have to go to a good subacute rehab facility and we are going to get a medical consult, neurology consult and a hematology consult because he was on the Plavix and for me to do the surgery, I have to neutralize the Plavix. Hopefully, we could do the surgery in a couple of days. It is definitely not going to be done today, which is 04/30/2018. We will wait until he is cleared medically, cardiac singh, neurological and hematological. Then, we could consider doing the surgery on the right hip bipolar prosthesis. Nishant Blackwell DO
[2018-04-30 07:50] VITALS: RESP 20
[2018-04-30 07:53] LABS: ALB/GLOB RATIO 1.2 (1.1-1.8); ALBUMIN 4.1 g/dL (3.0-4.8); ALT/SGPT 23 U/L (7-56); AST/SGOT 29 U/L (17-59); BLOOD UREA NITROGEN 21 mg/dL (7-21); CALCIUM 9.1 mg/dL (8.4-10.5); GFR AFRICAN-AMERICAN > 60; GFR NON-AFRICAN AMERICAN > 60
--- NOTE | 2018-04-30 08:29 | RAD ---
Date of service: 04/29/2018 PROCEDURE: Radiographs of the right elbow. HISTORY: r/o fx COMPARISON: No prior. FINDINGS: BONES: No acute fracture or destructive bony lesion identified. JOINTS: No subluxation or dislocation. Limited degenerative articular cortical sclerosis appreciate the humeral and ulnar humeral joints. Vascular calcifications are identified in the mid right forearm soft tissues incidentally. Right elbow soft tissues appear unremarkable. SOFT TISSUES: As above. JOINT EFFUSION: None. OTHER FINDINGS: None. IMPRESSION: No acute fracture or dislocation right elbow. [id number] osteoarthritis as discussed above.
[2018-04-30] MEDS ORDERED: Metoprolol Succinate 25 mg XL Tab PO SCH (08:45)
--- NOTE | 2018-04-30 09:01 | RAD ---
PROCEDURE: Right Hip and pelvis Radiographs. HISTORY: r/o fx COMPARISON: None. FINDINGS: BONES: There is a displaced subcapital hip fracture on the right JOINTS: Normal. SOFT TISSUES: Normal. OTHER FINDINGS: None. IMPRESSION: There is a displaced subcapital hip fracture on the right
--- NOTE | 2018-04-30 09:11 | HP ---
HISTORY OF PRESENT ILLNESS: The patient is a 78 year old man with a past medical history of CAD s/p CABG who presented s/p mechanical fall with resultant trauma to his right hip and elbow. The patient states he was on his balcony smoking when he tripped and fell on his right side. He reported immediate onset of pain to his right hip and elbow as well as inability to bear weight on his right lower extremity due to pain. As such, EMS was called and he was brought to the ED for evaluation. Physical examination in the ED found the patient to be in moderate distress secondary to pain. Radiographic studies demonstrated a displaced subcapital fracture to the right hip. The patient was evaluated by Dr. Blackwell of Orthopedic Surgery and recommendations were made to optimize pain control and obtain cardiac clearance prior to any orthopedic intervention. PAST MEDICAL HISTORY: As per HPI, also hypertension, hyperlipidemia, BPH, COPD and depression. PAST SURGICAL HISTORY: As per HPI, also cholecystectomy and splenectomy. ALLERGIES: Shellfish. MEDICATIONS: Namenda 10 mg p.o. b.i.d., Lisinopril 10 mg p.o. daily, Folic acid 1 mg p.o. daily, Plavix 75 mg p.o. daily, Flomax 0.8 mg p.o. daily, Pepcid 20 mg p.o. daily, Lexapro 20 mg p.o. daily, Lipitor 40 mg p.o. daily, Aspirin 81 mg p.o. daily and Toprol XL 12.5 mg p.o. daily. FAMILY HISTORY: Noncontributory. SOCIAL HISTORY: The patient reports an active [id number] smoking history and social alcohol use. He denies illicit drug abuse. REVIEW OF SYSTEMS: A 12-point review of systems is negative except for as per HPI. PHYSICAL EXAMINATION: VITAL SIGNS: Temperature 97.9, pulse 79, blood pressure 166/82, respiratory rate 20, oxygen saturation 94% on room air. GENERAL: No apparent distress. HEENT: PERRL, EOMI. No scleral icterus. No conjunctival pallor. NECK: No JVD. LUNGS: Clear to auscultation. CARDIOVASCULAR: Regular rate and rhythm. Normal S1, S2. ABDOMEN: Normoactive bowel sounds. Soft, nontender, nondistended. EXTREMITIES: No edema. Decreased range of motion to the right lower extremity (limited by pain). NEUROLOGIC: Awake, alert and oriented x 3. No focal motor deficits. LABORATORY DATA: WBC 13.8 with 72% neutrophils, hemoglobin 13.7, hematocrit 39, platelets 150. Chemistry reviewed and unremarkable. ASSESSMENT: The patient is a 78 year old man with multiple medical comorbidities who presented s/p mechanical fall and was admitted for management of a displaced subcapital right hip fracture. PLAN: 1. Acute displaced subcapital fracture to the right hip. Input from from Dr. Blackwell noted and greatly appreciated. Dr. Cam has been consulted for perioperative cardiac risk assessment. Of note, the patient underwent a cardiac catheterization on 11/26/2017 and was advised that he will need to remain on Plavix for at least 1 year and Aspirin indefinitely. We will need to discuss with Cardiology the feasibility of holding his antiplatelet therapy but given his rather significant underlying cardiac disease it is likely that surgery will need to proceed while on Plavix. 2. CAD s/p CABG. Resume ASA 81mg po daily, Plavix 75mg po daily and Toprl XL 12.5 mg po daily. 3. Hypertension. Resume Lisinopril 10 mg p.o. daily. 4. BPH. Resume Flomax 0.8 mg p.o. daily. 4. Hyperlipidemia. Resume Lipitor 40 mg p.o. daily. 5. COPD. Continue supplemental oxygen and bronchodilators as needed. 6. Depression. Resume Lexapro 20 mg p.o. daily. 7. Prophylaxis. GI prophylaxis is not indicated as the patient is eating. We will start heparin for DVT prophylaxis. CODE STATUS: Full code. Hu Fox MD MANDA
--- NOTE | 2018-04-30 09:15 | CT ---
Date of service: 04/30/2018 PROCEDURE: CT HEAD WITHOUT CONTRAST. HISTORY: status post fall COMPARISON: Noncontrast head CT 11/23/2016. TECHNIQUE: Axial computed tomography images were obtained through the head/brain without intravenous contrast. Radiation dose: Total exam DLP = 982.88 mGy-cm. This CT exam was performed using one or more of the following dose reduction techniques: Automated exposure control, adjustment of the mA and/or kV according to patient size, and/or use of iterative reconstruction technique. FINDINGS: Limited motion artifacts obscure inferior sections. HEMORRHAGE: No intracranial hemorrhage. BRAIN: Good corticomedullary differentiation is seen once again. Stable, proportional, diffuse expansion of the ventriculosulcal and cisternal spaces is appreciated with white matter lucency compatible with diffuse cerebral atrophy and chronic microangiopathy. No suspicious extra-axial fluid collection is identified and the midline brain anatomy appears grossly nonfocal as imaged. There is no mass effect throughout. VENTRICLES: Unremarkable. No hydrocephalus. CALVARIUM: No destructive bony lesion or displaced fracture identified including through the skullbase. PARANASAL SINUSES: Unremarkable as visualized. No significant inflammatory changes. MASTOID AIR CELLS: Unremarkable as visualized. No inflammatory changes. OTHER FINDINGS: None. IMPRESSION: Stable age-appropriate age related neuro degenerative changes are appreciated without acute findings as discussed above. No significant interval change identified.
--- NOTE | 2018-04-30 13:42 | CON ---
Copied To: Bogdan Rajan MD Attending MD: Bogdan Rajan MD DATE: 04/30/2018 CARDIOLOGY CONSULTATION HISTORY: The patient is a 78-year-old male who sustained a fracture of his right hip after a mechanical fall. No loss of consciousness noted. The patient's cardiac history includes history of coronary artery bypass surgery. In addition, he underwent PTCA and stent of the critical lesion of the saphenous vein graft in 11/2017. His last evaluation was an echocardiogram which was performed in 11/2017, which revealed good LV function with an ejection fraction of 67%. There is no pulmonary hypertension noted. SOCIAL HISTORY: The patient is still an active smoker despite multiple advice about cessation of smoking necessary. He also suffers from hypercholesterolemia as well as hypertension. There is probable COPD noted. REVIEW OF SYSTEMS: A 14-point review of systems reviewed in detail. No syncope. No angina. No edema in the lower extremities. PHYSICAL EXAMINATION: VITAL SIGNS: Blood pressure varies from 146 to 166 systolic, heart rate is in the 70s. NECK: Negative JVD. LUNGS: Without rales. HEART: S1, S2. EXTREMITIES: Without edema. LABORATORY DATA: Includes an EKG which revealed marked ST-T changes; however, is unchanged from his previous cardiograms. Hemoglobin is 13.7 with white count of 13.8. Troponin is negative x1. Glucose is 128. IMPRESSION: 1. Status post mechanical fall without syncope, resulted in #2. 2. Right hip fracture. 3. Stable angina. 4. History of coronary artery bypass surgery. 5. History of percutaneous transluminal coronary angioplasty and stent in 11/2017. 6. Noncompliance with behavior and the patient continues to smoke. 7. Probable chronic obstructive pulmonary disease. 8. Hypertension. 9. Hypercholesterolemia. Given these findings, the patient's cardiac status is stable with no active disease at this time. We will discontinue his Plavix given that his angioplasty was more than a year ago. If there are plans for orthopedic surgery, there are no cardiac contraindications to his planned orthopedic surgery. The patient's family remains undecided on whether to have the surgery done here or transfer to [facility]. Bogdan Rajan MD [facility] # [phone]
[2018-04-30 14:35] VITALS: BP 136/77; PULSE 74; TEMP 97.8
--- NOTE | 2018-05-01 08:27 | CARD ---
APPROVED REPORT Date of service: 04/29/2018 EKG Measurement Heart [id number] <Conclusion> Normal sinus rhythm Minimal voltage criteria for LVH, may be normal variant Inferior infarct, age undetermined T wave abnormality, consider anterolateral ischemia Abnormal ECG
--- NOTE | 2018-05-01 09:54 | DS ---
ADMITTING DIAGNOSIS: Displaced subcapital fracture of the right hip. DISCHARGE DIAGNOSIS: Displaced subcapital fracture of the right hip. SECONDARY DIAGNOSES: CAD s/p CABG, hypertension, BPH, hyperlipidemia, COPD and depression. CONSULTATIONS: Dr. Blackwell (orthopedic Surgery) and Dr. Rajan (Cardiology). IMAGING STUDIES: 1. X-ray of the right pelvis demonstrates a displaced subcapital hip fracture. 2. CT of the head without contrast demonstrates stable age-appropriate related neurodegenerative changes and otherwise no acute findings. PROCEDURES: None. HISTORY OF PRESENT ILLNESS: The patient is a 78 year old man with a past medical history of CAD s/p CABG who presented s/p mechanical fall with resultant trauma to the right hip and elbow. The patient was on his balcony smoking when he tripped and fell on his right side. He reported immediate onset of pain to his right hip and elbow as well as inability to bear weight. Given his severe pain, EMS was called and he was brought to [facility] ED for evaluation. Physical examination in the ED found the patient to be in moderate distress secondary to pain. Radiographic studies demonstrated a displaced subcapital fracture to the right hip. The patient was evaluated by Dr. Blackwell of Orthopedic Surgery and the patient was subsequently admitted to the general medical ospina for continued pain control, cardiac clearance and orthopedic care. HOSPITAL COURSE: Upon admission to the general medical ospina the patient was evaluated by Dr. Rajan of Cardiology and was cleared for surgery. After a discussion with the daughter she stated that she would like to have the patient transferred to [facility]. With the help of the case reviewer and social workers, arrangements were made to facilitate a transfer to [facility] as per family's request with Dr. Blackwell as the accepting physician and the patient was transferred for continued care. CONDITION: Fair. DISPOSITION: The patient was transferred to [facility]. FOLLOWUP: The patient will follow up with his PMD within 1 week of discharge. The patient will follow up with Dr. Blackwell as scheduled. Hu Fox MD MANDA
== END 2018-04-30 21:44 | disposition short-term general hospital (02) | DRG 536 ==
LOC: ED 18:16 → ERH 20:53 → 5RNO 22:03
PROVIDERS: ADMIT Student in an Organized Health Care Education/Training Program; ATTEND Student in an Organized Health Care Education/Training Program
DX: S72.011A Unspecified intracapsular fracture of right femur, initial encounter for closed fracture (principal); I25.118 Atherosclerotic heart disease of native coronary artery with other forms of angina pectoris; N40.0 Benign prostatic hyperplasia without lower urinary tract symptoms; J44.9 Chronic obstructive pulmonary disease, unspecified; I10 Essential (primary) hypertension; F03.90 Unspecified dementia, unspecified severity, without behavioral disturbance, psychotic disturbance, mood disturbance, and anxiety; F32.9 Major depressive disorder, single episode, unspecified; E78.00 Pure hypercholesterolemia, unspecified; F17.200 Nicotine dependence, unspecified, uncomplicated; W01.0XXA Fall on same level from slipping, tripping and stumbling without subsequent striking against object, initial encounter; Y92.008 Other place in unspecified non-institutional (private) residence as the place of occurrence of the external cause; Z91.19 Patient's noncompliance with other medical treatment and regimen; Z79.02 Long term (current) use of antithrombotics/antiplatelets; Z79.82 Long term (current) use of aspirin; Z95.1 Presence of aortocoronary bypass graft; Z95.5 Presence of coronary angioplasty implant and graft; Z90.81 Acquired absence of spleen; Z85.828 Personal history of other malignant neoplasm of skin